=== PATIENT | male | born 1945 | race Caucasian/White ===

== ENCOUNTER 2018-04-22 22:10 | Inpatient (IN) | payer MEDICARE, OTHER ==
[2018-04-22] MEDS ORDERED: Norepinephrine 8 MG/250 ML BAG IVPB PRN (22:29)
[2018-04-22] MEDS ORDERED: Propofol 1,000 MG/100 ML VIAL IV PRN (22:31)
[2018-04-22] MEDS ORDERED: fentaNYL Citrate/PF 2,000 MCG in Sodium Chloride 0.9% 60 ML IV SCH (22:31)
[2018-04-22] MEDS ORDERED: Propofol BOLUS 1,000 MG/100 ML VIAL IV PRN (22:31)
[2018-04-22] MEDS ORDERED: Fentanyl BOLUS 250 ML IVPB PRN (22:31)
[2018-04-22] MEDS ORDERED: Lorazepam 2 MG/ML VIAL SLOW IVP PRN (22:31)
[2018-04-22] MEDS ORDERED: DISCONTINUE PREVIOUS NARCOTIC PAIN MEDICATIONS AND BENZODIAZEPINES FS SCH (22:31)
[2018-04-22] MEDS ORDERED: Morphine 4 MG/ML VIAL SLOW IVP PRN (22:31)
[2018-04-22 22:52] LABS: CO2 Tension 36.2 mmHg (35.0-45.0)
[2018-04-22 22:53] LABS: Actual Bicarbonate (HCO3a) 22.1 mEq/L (22-28); Base Excess (BEa) -2.2 mEq/L (-2.0 to +3.0); Calcium, Ionized 1.3 mmol/L (1.12-1.30); Hematocrit-ABG 29.6 % (42.0-52.0); Hemoglobin (Hb) 10.5 g/dL (14.0-18.0); O2 Tension (PaO2) 86.1 mmHg (> 70.0)
[2018-04-22 22:54] LABS: Puncture Site LRA
[2018-04-23 00:02] LABS: #Eosinphils 0.3 thou/uL (0.0-0.7); #Lymphocytes 1.9 thou/uL (1.20-3.40); #Neutrophils 9.4 thou/uL (1.40-6.50); %Basophils 0.1 % (0.0-1.0); %Eosinophils 2.6 % (0.0-10.0); %Monocytes 7.9 % (0.0-10.0); %Neutrophils 74.4 % (42.0-75.0); Hemoglobin 11.2 g/dL (14.0-18.0); Mean Corpuscular HGB CONC 32.2 g/dL (32.0-36.0); Mean Corpuscular Hemoglobin 29.9 pg (27.0-31.0); Mean Corpuscular Volume 92.7 fl (80.0-94.0); Mean Platelet Volume 8.4 fL (7.4-10.4); Platelet Count 274 thou/uL (130-400); RBC Distribution Width 13.4 % (11.5-14.5); Red Blood Cell (RBC) Count 3.74 mill/uL (4.70-6.10); White Blood Cell (WBC) Count 12.7 thou/uL (4.8-10.8)
[2018-04-23 00:21] LABS: ALT (SGPT) 66 U/L (8-55); AST (SGOT) 42 U/L (5-34); Alkaline Phosphatase 137 U/L (40-150); Anion Gap 13 mmol/L (10-20); BUN (Urea Nitrogen) 49 mg/dL (8.4-25.7); Bilirubin, Total 1.2 mg/dL (0.2-1.2); Calc. Creatinine Clearance 0 mL/min (70-130); Calcium 9.1 mg/dL (7.8-10.44); Carbon Dioxide 23 mmol/L (23-31); Chloride 117 mmol/L (98-107); Estimated GFR-MDRD 45; Globulin 3.1 g/dL (2.4-3.5); Glucose 152 mg/dL (83-110); Potassium 5.1 mmol/L (3.5-5.1); Protein, Total 6.1 g/dL (5.8-8.1); Sodium 148 mmol/L (136-145)
--- NOTE | 2018-04-23 00:59 | HP ---
ROBOTICS TECHNOLOGIST: Sin Resendiz MD GROUND WOOD SUPERVISOR: Kervin Escalera MD CHIEF COMPLAINT: Unable to obtain from the patient, but it appears that the patient had a cardiac ar rest event. HISTORY OF PRESENT ILLNESS: This is a 72-year-old male with minimal known past medical history other than glaucoma who is currently intubated and sedated without any family available at bedside to prov jose any component of history. It appears that the patient's records thus far have also been left at the airport and are not here with him today, so unfortunately his present illness is very limited and is based on what can be deduced from his current state and what has been verbally translated and sig n out to multiple providers. It appears that the patient was initially on a cruise when he was "found down." He underwent CPR for 15 minutes approximately and underwent several cardiac shocks with intubation in the field as well a nd return of spontaneous circulation. The patient certainly also has noted contusion on his head noah t is consistent with perhaps a fall. The patient was on the boat for it sounds like approximately 1 day afterwards and then was subsequent ly dropped off at a hospital in [place] where he was found to have sustained a STEMI. The patient had a stent placed during a heart catheterization and it is not clear what type of stent was placed exac tly where at this point in time. There is also concern that he initially had a component of cardioge tam shock and while he is currently not on dobutamine, there is a report that he was at one point pot entially on dobutamine previously. It is unclear what other complications may have ensued as well. There are reports that the patient had pneumonia possibly. Regardless, the patient currently is pres enting with a chest tube in place that is draining serosanguineous fluid as well. It appears throughout this acute illness, the patient has been intubated and maintained on ventilator y support. The patient also had a central line, triple lumen, placed at some point prior to the pres entation here today as well. Other lines and tubes include a Castle catheter that is coming with the patient as well. REVIEW OF SYSTEMS: Otherwise, unable to obtain. PAST MEDICAL HISTORY: Unable to obtain. HOME MEDICATIONS: Unable to obtain, although it was very sure that his who is on route will be coming in with his home medications. SOCIAL HISTORY: Unable to obtain. FAMILY HISTORY: Unable to obtain. PHYSICAL EXAMINATION: GENERAL: The patient is intubated, sedated. HEENT: Normocephalic. Significant bruising over his right eye. ET tube is in place. Slightly dry mucous membranes. CARDIOVASCULAR: S1, S2. Pulses 2+ bilateral upper extremities. No bilateral pitting pedal edema. RESPIRATORY: No wheezes, no rales, no rhonchi. The patient has coarse ventilatory sounds bilaterall y. This is a limited anterior examination. Chest tube in place, right side, draining serosanguineou s fluid. Site of insertion appears to be clean, dry, and intact. ABDOMEN: Large, protuberant, decreased bowel sounds were present, soft. MUSCULOSKELETAL: Small abrasions noted throughout his extremities that appeared to be in various pro cesses of healing. LABORATORY DATA AND IMAGING: Currently, all that is available is in the ABG that was obtained upon a rrival to the ICU, pH of 7.4, pCO2 of 36.2, pO2 of 86.1, bicarbonate 22.1. ASSESSMENT AND PLAN: 1. Status post ST-elevation myocardial infarction with a question of cardiogenic shock component. O btain an EKG now, echocardiogram as well. The patient has seen Dr. Resendiz on an outpatient basis. We will consult Cardiology as well. Closely monitor hemodynamics. Obtain prior records to determin e what type of stent was placed and what type of anticoagulation. The patient may need to be on rout e depending on the stent. Obtain a basic comprehensive metabolic panel and a CBC to determine the sa fety. Obtain those labs values. 2. Hypotension, question shock. Patient has been presented on Levophed. Unclear if this is necessa rily cardiogenic and residual, requiring Levophed or if this is secondary to sedation and requiring L evophed. We will maintain check lactic acid, check cultures from UA, check blood cultures, obtain a chest x-ray as well. Titrate as tolerated downward. 3. Acute hypoxic failure, currently on ventilatory support. The ABG above appreciate Pulmonary Crit ical Care consultation. This is likely secondary to cardiac issues as opposed to primary respiratory failure, question of pneumonia was brought up, we will obtain a chest x-ray, CBC. If any signs or s ymptoms consistent with infections, low threshold for initiating broad-spectrum antibiotics to encomp ass coverage for methicillin-resistant Staphylococcus aureus. 4. Cardiac arrest, status post CPR x15 minutes with shocks. Unclear if the patient underwent any hy pothermia protocol, but the patient has not had a second cardiac arrest. This was likely secondary t o his sustained ST-elevation myocardial infarction. 5. Glaucoma. Okay for the patient to continue his home eyedrops. 6. Diet: N.p.o. We will consult dietitian for possibility of tube feed initiation if he has contin ued ventilator support needs, DVT prophylaxis, sequential, gastrointestinal prophylaxis, famotidine. Activity: Bed rest while the patient is currently intubated. Admit the patient to intensive care unit. FULL CODE. Greater than 30 minutes critical care time spe nt at the bedside. The patient will need to follow up with outpatient records which should be available first thing in t he morning as well as obtaining contact with the patient's family, specifically his who has been with him during this trip where his acute medical issues started.
[2018-04-23 01:42] LABS: Bilirubin Negative (Negative); Blood, Urine Moderate (Negative); Clarity CLOUDY (Clear); Glucose, Urine (Dipstick) Negative (Negative); Leukocyte Trace (Negative); Nitrite Negative (Negative); Protein, Urine (Dipstick) Negative (Neg-Trace); Specific Gravity, Urine 1.021 (1.002-1.036)
[2018-04-23 01:46] LABS: Bacteria/HPF None Seen HPF (None Seen); Hyaline Casts/LPF 0-3 HYALINE CAST LPF (0-3 Hyaline); Pathc Cast-AUWi Flag 0.58 (0-2.49); Squamous Epithelial None Seen HPF (0-3); WBC/HPF 0-3 HPF (0-3)
[2018-04-23] MEDS ORDERED: Acetaminophen 325 MG/10.15 ML UDCUP PO PRN (03:08)
[2018-04-23] MEDS ORDERED: Ibuprofen 100 MG/5 ML UDCUP PO PRN (03:08)
[2018-04-23 06:18] LABS: #Eosinphils 0.4 thou/uL (0.0-0.7); #Lymphocytes 2.1 thou/uL (1.20-3.40); %Basophils 0.2 % (0.0-1.0); %Eosinophils 2.9 % (0.0-10.0); %Lymphocytes 15.3 % (21.0-51.0); %Monocytes 7.5 % (0.0-10.0); %Neutrophils 74.1 % (42.0-75.0); Mean Corpuscular HGB CONC 32.6 g/dL (32.0-36.0); Mean Corpuscular Hemoglobin 30.1 pg (27.0-31.0); Mean Corpuscular Volume 92.2 fl (80.0-94.0); Mean Platelet Volume 8.4 fL (7.4-10.4); Platelet Count 270 thou/uL (130-400); RBC Distribution Width 13.3 % (11.5-14.5); Red Blood Cell (RBC) Count 3.66 mill/uL (4.70-6.10); White Blood Cell (WBC) Count 13.5 thou/uL (4.8-10.8)
[2018-04-23] MEDS: Amiodarone HCl 450 MG, Admixture Fee 1 EACH in Dextrose 5% in Water 250 ML IVPB SCH ×2 (06:30→13:57)
[2018-04-23 06:35] LABS: ALT (SGPT) 81 U/L (8-55); AST (SGOT) 69 U/L (5-34); Alkaline Phosphatase 166 U/L (40-150); Anion Gap 14 mmol/L (10-20); BUN (Urea Nitrogen) 47 mg/dL (8.4-25.7); Bilirubin, Total 1.2 mg/dL (0.2-1.2); Calc. Creatinine Clearance 76 mL/min (70-130); Calcium 9.1 mg/dL (7.8-10.44); Carbon Dioxide 23 mmol/L (23-31); Chloride 118 mmol/L (98-107); Estimated GFR-MDRD 51; Globulin 3.1 g/dL (2.4-3.5); Glucose 155 mg/dL (83-110); Potassium 4.7 mmol/L (3.5-5.1); Protein, Total 6.1 g/dL (5.8-8.1); Sodium 150 mmol/L (136-145)
[2018-04-23] MEDS ORDERED: Digoxin 0.5 MG/2 ML AMP SLOW IVP SCH (08:15)
--- NOTE | 2018-04-23 08:23 | RAD ---
CHEST 1 VIEW: Date: 04/23/18 HISTORY: Intubated. Dyspnea. COMPARISON: 08/15/13. FINDINGS: Cardiac silhouette is magnified and upper limits of normal in size. Pulmonary vasculature is unremark able. Mediastinum is midline. Tip of the endotracheal catheter overlies the thoracic inlet. Nasogastr ic tube descends to the stomach. Tip of a right internal jugular central venous catheter overlies the superior vena cava. Right thoracostomy tube is in place. No significant residual right pneumothorax. Right chest wall gas is apparent. Old left rib fractures are evident. cone baker machine leads overlie the chest. IMPRESSION: Endotracheal catheter, right internal jugular central venous catheter, and right thoracostomy tube ar e in good radiographic position. No significant residual pneumothorax. POS: [facility]
[2018-04-23 08:39] LABS: Digoxin Less than 0.15 ng/mL (0.8-2.0)
[2018-04-23] MEDS: LATANOPROST 0.005% L EYE SCH (08:49)
[2018-04-23] MEDS: OPTHALMIC L EYE SCH (08:49)
[2018-04-23] MEDS ORDERED: Famotidine/PF 20 mg/2ml Vial SLOW IVP SCH (09:00)
[2018-04-23] MEDS: Pantoprazole 40 MG VIAL IVP SCH (09:06)
[2018-04-23] MEDS ORDERED: Lacri-Lube Opth Oint 3.5 GM TUBE EA EYE PRN (09:10)
[2018-04-23] MEDS: Dextrose 5% in Water 1,000 ML IV SCH ×2 (09:32→18:42)
[2018-04-23] MEDS: Piperacillin/Tazobactam 3.375 GM in Sodium Chloride 0.9% 100 ML IVPB SCH ×3 (09:35→22:07)
--- NOTE | 2018-04-23 09:42 | CON ---
DATE OF CONSULTATION: 04/23/2018 SERVICE: Pulmonary Medicine. REASON FOR CONSULTATION: Intubated patient. HISTORY OF PRESENT ILLNESS: The patient is a 72-year-old white male. Apparently, he was in his [facility], visiting [place]. He had acute onset of some discomfort. He was [facility] and was discovered to have an ST elevation SD. He ended up undergoing percutaneou s coronary intervention to the left anterior descending artery. It is not clear what stent that was. All of his records got left on the plane. He currently denies any fevers, chills, nausea, vomiting , shortness of breath or chest discomfort. We really do not know what happened to him. That being s aid, he has a prolonged expiratory phase on the ventilator. He also has a right-sided chest tube. Cheryle franco was being ventilated with generous tidal volumes. When he arrived, he was heavily sedated on Prece dex, Versed, and fentanyl. All of those things have been interrupted and he is waking up cool, calm and collected. He is able to move both upper and lower extremities. He is breathing comfortable on minimal support. PAST MEDICAL HISTORY: 1. Coronary artery disease. 2. Type 2 diabetes mellitus. 2. Dyslipidemia. 3. Hypertension. PAST SURGICAL HISTORY: None that we are aware of other than percutaneous coronary intervention to viv franco LAD. SOCIAL HISTORY: He previously smoked a pack a day. It is not clear how much he currently smokes. Cheryle franco drinks socially. He previously denied any illicit drugs in 2012. FAMILY HISTORY: Noncontributory. ALLERGIES: No known drug allergies. MEDICATIONS: List of his inpatient medications were reviewed. No specific updates were made. Home medication list is currently pending. REVIEW OF SYSTEMS: This cannot be obtained as the patient is currently intubated and under the influ ence of some sedation. PHYSICAL EXAMINATION: VITAL SIGNS: T-max 101.0, pulse 140, respirations 17, saturation 100% on 23% FiO2 and a PEEP of 5. GENERAL: The patient is intubated and sedated. HEENT: Normocephalic. There is ecchymoses about the right eye. Sclerae are white, conjunctivae pin k. Oral and nasal mucosa is moist without lesions. LUNGS: Decent air entry. Minimal crackles are dependent. There is a prolonged expiratory phase, bu t no wheezing is appreciated. HEART: Tachycardic. Irregular. ABDOMEN: Soft, nontender, nondistended. Bowel sounds are positive. MUSCULOSKELETAL: No cyanosis or clubbing. There is no pitting in the bilateral lower extremities. NEUROLOGIC: Grossly nonfocal. LABORATORY DATA: WBC 13.5, hemoglobin 11.0, platelets 270,000. Creatinine 1.36, BUN 47. Basic meta bolic profile is otherwise unremarkable other than a sodium of 150, lactate 0.9. AST and ALT are gen tly up trending with an alkaline phosphatase of 166. Urinalysis is unremarkable. Digoxin level is l ess than 0.15. IMAGING: Chest x-ray demonstrates right IJ central venous catheter is in good position. There is a right thoracostomy tube in decent position. No evidence of a pneumothorax is present. Endotracheal tube terminates roughly 5 cm above the level of the kandace. I do not see any obvious infiltrate. ASSESSMENT: 1. Acute hypoxic respiratory failure. 2. ST elevation myocardial infarction. 3. Atrial fibrillation with rapid ventricular response. 4. Chronic obstructive pulmonary disease, suspected with possible minimal exacerbation. 5. Sepsis with unknown source. PLAN: If he fevers again, we will clancy culture him. I will empirically initiate vancomycin and Zosyn . We are going to initiate some nebulized medications. The sodium was elevated, so we will introduc e some free water. He had an acute kidney injury, but apparently this is resolving slowly. Pulmonar y and Critical Care will continue to follow along very closely. If the heart rate gets under better control, we will consider spontaneous breathing trial and possible extubation. Critical care time: 50 minutes.
[2018-04-23] MEDS ORDERED: Vancomycin HCl 1.75 GM in Sodium Chloride 0.9% 500 ML IVPB SCH (10:00)
--- NOTE | 2018-04-23 10:57 | PDOC.PN ---
- Subjective Encounter Start Date: 04/23/18 Encounter Start Time: 10:54 Subjective: extubated , oriented to person and place - Objective Resuscitation Status: Resuscitation Status FULL:Full Resuscitation MAR Reviewed: Yes Vital Signs & Weight: Vital Signs (12 hours) Temp Pulse Resp Pulse Ox 04/23/18 10:00 18 04/23/18 09:20 145 H 04/23/18 09:10 94 L 04/23/18 08:48 140 H 04/23/18 08:00 18 04/23/18 06:44 141 H 04/23/18 06:00 99.2 F 16 04/23/18 04:00 16 04/23/18 02:00 16 04/23/18 01:00 100.5 F H 04/23/18 00:00 16 Weight Weight 244 lb 11.41 oz Most Recent Monitor Data Heart Rate from ECG 141 NIBP 113/86 NIBP BP-Mean 92 Respiration from ECG 23 SpO2 97 I&O: 04/22/18 04/23/18 04/24/18 06:59 06:59 06:59 Intake Total 40 229.9 Output Total 2110 300 Balance -2070 -70.1 Result Diagrams: 04/23/18 05:00 04/23/18 05:00 Additional Labs: Accuchecks 04/23/18 05:06 POC Glucose 142 H Phys Exam - Physical Examination Neck: no JVD decreased BS, rhonchi Cardiovascular: no significant murmur, irregular Gastrointestinal: soft, positive bowel sounds Musculoskeletal: edema present Dx/Plan (1) History of successful cardiopulmonary resuscitation Code(s): Z92.89 - PERSONAL HISTORY OF OTHER MEDICAL TREATMENT Status: Acute (2) Respiratory failure requiring intubation Code(s): J96.90 - RESPIRATORY FAILURE, UNSP, UNSP W HYPOXIA OR HYPERCAPNIA Status: Acute (3) CAD (coronary artery disease) Code(s): I25.10 - ATHSCL HEART DISEASE OF [place] CORONARY ARTERY W/O ANG PCTRS Status: Acute Qualifiers: Coronary Disease-Associated Artery/Lesion type: [place] artery [place] vs. transplanted heart: [place] heart Associated angina: without angina Qualified Code(s): I25.10 - Atherosclerotic heart disease of [place] coronary artery without angina pectoris (4) Atrial fibrillation with controlled ventricular response Code(s): I48.91 - UNSPECIFIED ATRIAL FIBRILLATION Status: Acute (5) STEMI (ST elevation myocardial infarction) Status: Acute Qualifiers: Involved coronary artery: unspecified coronary artery Qualified Code(s): I21.3 - ST elevation (STEMI) myocardial infarction of unspecified site (6) HTN (hypertension) Code(s): I10 - ESSENTIAL (PRIMARY) HYPERTENSION Status: Chronic Qualifiers: Hypertension type: essential hypertension Qualified Code(s): I10 - Essential (primary) hypertension - Plan transfer from [place] [facility] CPR, intubatiom, card cath, PCI by Hx. no records -: extubated, alert -: on iv amiodarone, digoxin -: on iv antibx -: awaiting records from [place] * .
--- NOTE | 2018-04-23 11:15 | PQF ---
DATE: 04-23-18 ATTN: DR. LUCAS ARIAS Please exercise your independent, professional judgment in responding to the clarification form. Clinical indicators are provided on the bottom of this form for your review Please check appropriate box(s) to clarify if the following diagnosis has been ruled in or ruled out: SEPSIS WITH UNKNOWN SOURCE [ ] Ruled in diagnosis [ ] Continue to treat [ ] Resolved [ ] Ruled out diagnosis [ ] Other diagnosis [ x ] Unable to determine In addition, please specify: Present on Admission (POA): [ ] Yes [ ] No [ ] Unable to determine For continuity of documentation, please document condition throughout progress notes and discharge summary. Thank You. CLINICAL INDICATORS - SIGNS / SYMPTOMS / LABS H&P: THERE ARE REPORTS THAT THE PATIENT HAD PNEUMONIA POSSIBLY CONSULT NOTE DR. GIBSON 04-23-18: SEPSIS WITH UNKNOWN SOURCE WBC: 04-22-18: 12.7 04-23-18: 13.5 TEMP: 04-22-18: 101.0 101.0 101.0 -06-03: 100.5 PULSE: 04-23-18: 141, 135, 140, 145, 148, 159 RISK FACTORS: H&P: THERE ARE REPORTS THAT THE PATIENT HAD PNEUMONIA POSSIBLY , CARDIAC ARREST, WAS FOUND DOWN ON A CRUISE, UNDERWENT SEVERAL CARDIAC SHOCKS WITH INTUBATION IN THE FIELD TREATMENTS: (MAR) ZOSYN , IVF, VANCOMYCIN (This form is maintained as a part of the permanent medical record) 2014 [employer] All Rights Reserved [email or web address] [email or web address] Office: [phone] [facility] CENTERPa
[2018-04-23] MEDS ORDERED: Naloxone HCl 0.4 mg/ml Vial ONE (12:00)
[2018-04-23] MEDS ORDERED: MAGNESIUM SULFATE 4.06 MEQ/ML ONE (12:00)
[2018-04-23] MEDS ORDERED: Aspirin 81 mg Enteric Coated Tablet PO SCH (18:45)
[2018-04-23] MEDS ORDERED: Clopidogrel Bisulfate 300 MG TAB PO SCH (18:45)
[2018-04-23] MEDS ORDERED: Aspirin 325 mg Enteric Coated Tablet PO SCH (18:45)
[2018-04-23] MEDS ORDERED: Vancomycin HCl 1.5 GM in Sodium Chloride 0.9% 250 ML 300 ML IVPB SCH (21:00)
[2018-04-23] MEDS: Vancomycin HCl 1 GM in Premix Bag 1 BAG IVPB SCH (22:07)
[2018-04-24] MEDS: Dextrose 5% in Water 1,000 ML IV SCH ×3 (00:27→13:15)
[2018-04-24] MEDS: Piperacillin/Tazobactam 3.375 GM in Sodium Chloride 0.9% 100 ML IVPB SCH ×4 (03:58→20:46)
--- NOTE | 2018-04-24 04:56 | CON ---
DATE OF CONSULTATION: 04/23/2018 HISTORY: Zeke Dawkins is a 72-year-old, white male, who had a cardiac arrest while on a cruise ship. I saw him in 08/2002. He had undergone adenosine Cardiolite testing at the ID and was found to have a fixed inferior wall defect , consistent with previous infarction. The ID wanted to send him to [place] to undergo cardiac catheterization; however, he wishes evaluation here. He underwent cardiac catheterization, which revealed normal left ventricular function with ejection fraction of 50%-55%. There was a 50% lesion in a branch of the first diagonal, 20% ramus, aneurysmal proximal circumflex, but otherwise normal. There was a 30% proximal RCA and a 50% mid RCA. He underwent flow wire evaluation of his mid RCA lesion and the FFR was 0.87. He was seen several times in the office after that for management of his hypercholesterolemia. He, however, continued to smoke 1 pack per day. Last time I saw him was on 05/26/2006. He has not returned for followup since that time. As stated above, he was on a cruise ship, and he was found down. CPR was started for approximately 15 minutes. He underwent several cardiac shocks, intubation, and had return of spontaneous circulation, and he was dropped off at a hospital in [place] and apparently underwent cardiac catheterization, and a stent was placed. It is unclear what vessel or the type of stent at this time. He apparently remained intubated, also had a chest tube placed. He ultimately was flown here and arrived last night. He was initially seen this morning. He was in atrial fibrillation with rapid ventricular response and amiodarone had been started IV. I gave him digoxin 0.5 mg IV. He ultimately converted to sinus rhythm and is now extubated. PAST MEDICAL HISTORY: Hypercholesterolemia, hypertension, borderline diabetes in the past. MEDICATIONS: Unknown. ALLERGIES: Unknown. OPERATIONS: Unknown. SOCIAL HISTORY: He smoked 1 pack per day in the past. I am not certain if he continues to smoke. 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 REVIEW OF SYSTEMS: Unobtainable. PHYSICAL EXAMINATION: VITAL SIGNS: Blood pressure 127/48, pulse of 86. HEENT: The patient has facial ecchymosis. LUNGS: Chest reveals rhonchi. CARDIOVASCULAR EXAMINATION: S1 and S2 normal, without any S3, S4, or murmurs. ABDOMEN: Normal bowel sounds, without tenderness or organomegaly. EXTREMITIES: Revealed 1+ pretibial edema. NEUROLOGICAL: The patient is intubated initially when he was seen this morning , but moved all extremities. LABORATORY DATA: EKG on admission reveals normal sinus rhythm with incomplete right bundle branch block, anterior T-wave changes consistent with ischemia, and he is in atrial fibrillation with a rate of 139 per minute, he has a left bundle branch block pattern. Hemoglobin 11.0, hematocrit 33.7, white count 13, 500, platelets 270,000. Sodium 150, potassium 4.7, chloride 118, carbon dioxide 23, BUN 47, creatinine 1.36. AST 69 and ALT 81. Digoxin less than 0.15. IMPRESSION: 1. [id number] cardiac arrest. 2. Presumed ST-elevation myocardial infarction with placement of stent in an unknown vessel in [place]. 3. Atrial fibrillation with fast ventricular response, ultimately converting with intravenous amiodarone and digoxin. 4. Hypertension. 5. Hypercholesterolemia. 6. Borderline diabetes. 7. Smoker. However, I am not certain if he continues to smoke at this time. PLAN: The patient is currently on antibiotics. He needs to be on aspirin and Plavix, although I am not certain what antiplatelet agents he was given initially. Old records will be available sometime in the future, but are not here now. ADDENDUM: Records arrived. All in [place]. Reviewed-04/16/18-99% RCA and 30- 40% Circumflex. Promus 3.5 x 28mm JANNY placed in the RCA. MTDD
[2018-04-24 06:03] LABS: #Eosinphils 0.5 thou/uL (0.0-0.7); #Lymphocytes 1.5 thou/uL (1.20-3.40); #Monocytes 0.7 thou/uL (0.11-0.59); #Neutrophils 7.6 thou/uL (1.40-6.50); %Basophils 0.2 % (0.0-1.0); %Eosinophils 4.6 % (0.0-10.0); %Lymphocytes 14.6 % (21.0-51.0); %Monocytes 7.2 % (0.0-10.0); %Neutrophils 73.4 % (42.0-75.0); Hemoglobin 9.9 g/dL (14.0-18.0); Mean Corpuscular HGB CONC 32.7 g/dL (32.0-36.0); Mean Corpuscular Hemoglobin 30.3 pg (27.0-31.0); Mean Corpuscular Volume 92.7 fl (80.0-94.0); Mean Platelet Volume 8.2 fL (7.4-10.4); Platelet Count 214 thou/uL (130-400); RBC Distribution Width 13.1 % (11.5-14.5); Red Blood Cell (RBC) Count 3.26 mill/uL (4.70-6.10); White Blood Cell (WBC) Count 10.4 thou/uL (4.8-10.8)
[2018-04-24 06:10] LABS: ALT (SGPT) 56 U/L (8-55); AST (SGOT) 34 U/L (5-34); Albumin 2.8 g/dL (3.4-4.8); Alkaline Phosphatase 124 U/L (40-150); Anion Gap 11 mmol/L (10-20); BUN (Urea Nitrogen) 38 mg/dL (8.4-25.7); Calc. Creatinine Clearance 83 mL/min (70-130); Calcium 8.5 mg/dL (7.8-10.44); Carbon Dioxide 24 mmol/L (23-31); Chloride 115 mmol/L (98-107); Estimated GFR-MDRD 57; Globulin 2.9 g/dL (2.4-3.5); Glucose 157 mg/dL (83-110); Potassium 3.9 mmol/L (3.5-5.1); Protein, Total 5.7 g/dL (5.8-8.1); Sodium 146 mmol/L (136-145)
[2018-04-24] MEDS: Amiodarone HCl 450 MG, Admixture Fee 1 EACH in Dextrose 5% in Water 250 ML IVPB SCH (06:10)
[2018-04-24 06:19] VITALS: BMI 31.6
--- NOTE | 2018-04-24 08:49 | PDOC.PN ---
- Subjective Encounter Start Date: 04/24/18 Encounter Start Time: 08:47 Subjective: alert, amnestic for events of past week - Objective Resuscitation Status: Resuscitation Status FULL:Full Resuscitation MAR Reviewed: Yes Vital Signs & Weight: Vital Signs (12 hours) Temp Pulse Resp Pulse Ox 04/24/18 07:00 98.9 F 04/24/18 06:50 99 04/24/18 06:49 70 21 H 99 04/24/18 04:00 98.8 F 04/24/18 00:00 98.3 F 04/23/18 23:53 68 24 H 100 Weight Weight 238 lb 12.17 oz Most Recent Monitor Data Heart Rate from ECG 65 NIBP 126/60 NIBP BP-Mean 70 Respiration from ECG 24 SpO2 100 I&O: 04/23/18 04/24/18 04/25/18 06:59 06:59 06:59 Intake Total 40 3197.9 15 Output Total 2110 2130 70 Balance -2070 1067.9 -55 Result Diagrams: 04/24/18 05:25 04/24/18 05:25 Phys Exam - Physical Examination Neck: no JVD Respiratory: clear to auscultation bilateral Cardiovascular: RRR, no significant murmur Gastrointestinal: soft, positive bowel sounds Musculoskeletal: edema present Dx/Plan (1) History of successful cardiopulmonary resuscitation Code(s): Z92.89 - PERSONAL HISTORY OF OTHER MEDICAL TREATMENT Status: Acute (2) Respiratory failure requiring intubation Code(s): J96.90 - RESPIRATORY FAILURE, UNSP, UNSP W HYPOXIA OR HYPERCAPNIA Status: Acute (3) CAD (coronary artery disease) Code(s): I25.10 - ATHSCL HEART DISEASE OF [place] CORONARY ARTERY W/O ANG PCTRS Status: Acute Qualifiers: Coronary Disease-Associated Artery/Lesion type: [place] artery [place] vs. transplanted heart: [place] heart Associated angina: without angina Qualified Code(s): I25.10 - Atherosclerotic heart disease of [place] coronary artery without angina pectoris (4) Atrial fibrillation with controlled ventricular response Code(s): I48.91 - UNSPECIFIED ATRIAL FIBRILLATION Status: Acute (5) STEMI (ST elevation myocardial infarction) Status: Acute Qualifiers: Involved coronary artery: unspecified coronary artery Qualified Code(s): I21.3 - ST elevation (STEMI) myocardial infarction of unspecified site (6) HTN (hypertension) Code(s): I10 - ESSENTIAL (PRIMARY) HYPERTENSION Status: Chronic Qualifiers: Hypertension type: essential hypertension Qualified Code(s): I10 - Essential (primary) hypertension (7) Cardiomyopathy Code(s): I42.9 - CARDIOMYOPATHY, UNSPECIFIED Status: Acute - Plan still on iv amiodarone- now in RSR -: on ASA, plavix -: speech eval, up in chair, PT -: will eventually need b-johanna/ LUDWIN * .
[2018-04-24] MEDS: Vancomycin HCl 1 GM in Premix Bag 1 BAG IVPB SCH ×2 (09:11→20:47)
[2018-04-24] MEDS: Enoxaparin Sodium 40 MG/0.4 ML SYRINGE SC SCH (09:14)
[2018-04-24] MEDS: Amiodarone 200 MG TAB PO SCH ×3 (09:15→20:46)
[2018-04-24] MEDS: Aspirin 325 mg Enteric Coated Tablet PO SCH (09:16)
[2018-04-24] MEDS: Clopidogrel Bisulfate 75 MG TAB PO SCH (09:16)
[2018-04-24] MEDS: Pantoprazole 40 MG VIAL IVP SCH (09:17)
[2018-04-24] MEDS: OPTHALMIC L EYE SCH (09:20)
[2018-04-24] MEDS: LATANOPROST 0.005% L EYE SCH (09:20)
[2018-04-24] MEDS: Carvedilol 3.125 MG TAB PO SCH ×2 (09:42→18:35)
[2018-04-24] MEDS ORDERED: Potassium Chloride 20 MEQ TAB PO SCH (10:15)
--- NOTE | 2018-04-24 10:46 | PRG ---
DATE OF SERVICE: 04/24/2018 SERVICE: Pulmonary Medicine. INTERVAL HISTORY: The patient is doing okay from a cardiovascular and respiratory standpoint. He is breathing comfortably. He denies any current chest pain, nausea, vomiting, fevers or chills. Chest tube came out yesterday with no event. Otherwise, there has been no interval change to his conditio n. PHYSICAL EXAMINATION: VITAL SIGNS: Afebrile, pulse 70, blood pressure 126/60, respirations 24, saturation 100% on 2 liters nasal cannula. GENERAL: The patient is awake, alert, no apparent distress. LUNGS: Decent air entry. There is no prolonged expiratory phase. Dependent crackles are minimal. No wheezing or rhonchi are present. HEART: Normal rate, regular. ABDOMEN: Soft, nontender, nondistended. Bowel sounds are positive. MUSCULOSKELETAL: No cyanosis or clubbing. There is trace pitting in the bilateral lower extremities . NEUROLOGIC: Grossly nonfocal. LABORATORY DATA: WBC 10.4 and down trending, hemoglobin 9.9, platelets 214,000. Basic metabolic pro file is essentially unremarkable. Sodium is down trending, chloride is down trending. Creatinine is now in the normal range of 1.24. BUN is improving. Liver function studies are also unremarkable/im proving. Potassium is 3.9. TSH falls within the normal limits. Urinalysis is unremarkable, digoxin less than 0.15. IMAGING: Echocardiogram demonstrates 30%-35% ejection fraction with normal right ventricular functio n. No significant valvular abnormality was identified. Atrial fibrillation was present in the backg round. ASSESSMENT: 1. Acute hypoxic respiratory failure. 2. ST elevation myocardial infarction. 3. Acute systolic heart failure, close to euvolemia. 4. Atrial fibrillation with rapid ventricular response, currently returned in normal sinus rhythm. 5. Chronic obstructive pulmonary disease, suspected with minimal exacerbation. 6. Sepsis with unknown source. DISCUSSION AND PLAN: We will continue our antibiotics, nebulized medications and steroids. We will work on mobilizing the patient through the day and involve physical therapy. Castle catheter to be re moved. I will drop his free water. Speech Pathology consultation is pending and hopefully he will b e able to tolerate some p.o. I will give him 1 dose of potassium today. Laboratory holiday will be provided tomorrow morning.
[2018-04-24] MEDS: Atorvastatin Calcium 40 MG TAB PO SCH (20:46)
[2018-04-25] MEDS: Piperacillin/Tazobactam 3.375 GM in Sodium Chloride 0.9% 100 ML IVPB SCH ×4 (03:06→20:33)
[2018-04-25] MEDS: Dextrose 5% in Water 1,000 ML IV SCH ×2 (03:08→20:37)
[2018-04-25 05:44] LABS: #Eosinphils 0.8 thou/uL (0.0-0.7); #Lymphocytes 1.9 thou/uL (1.20-3.40); #Neutrophils 11.2 thou/uL (1.40-6.50); %Basophils 0.1 % (0.0-1.0); %Eosinophils 5.1 % (0.0-10.0); %Lymphocytes 12.5 % (21.0-51.0); %Monocytes 6.8 % (0.0-10.0); %Neutrophils 75.4 % (42.0-75.0); Hemoglobin 10.6 g/dL (14.0-18.0); Mean Corpuscular HGB CONC 32.6 g/dL (32.0-36.0); Mean Corpuscular Hemoglobin 29.8 pg (27.0-31.0); Mean Corpuscular Volume 91.3 fl (80.0-94.0); Platelet Count 264 thou/uL (130-400); Red Blood Cell (RBC) Count 3.56 mill/uL (4.70-6.10); White Blood Cell (WBC) Count 14.8 thou/uL (4.8-10.8)
[2018-04-25 06:18] LABS: ALT (SGPT) 48 U/L (8-55); AST (SGOT) 28 U/L (5-34); Albumin 2.8 g/dL (3.4-4.8); Alkaline Phosphatase 114 U/L (40-150); Anion Gap 13 mmol/L (10-20); BUN (Urea Nitrogen) 28 mg/dL (8.4-25.7); Bilirubin, Total 0.9 mg/dL (0.2-1.2); Calc. Creatinine Clearance 91 mL/min (70-130); Calcium 8.3 mg/dL (7.8-10.44); Carbon Dioxide 22 mmol/L (23-31); Cardiac Risk 3.4 (Less than 4.5); Chloride 111 mmol/L (98-107); Cholesterol 75 mg/dl (< 200 Desired); Estimated GFR-MDRD 66; Globulin 2.7 g/dL (2.4-3.5); Glucose 168 mg/dL (83-110); HDL Cholesterol 22 mg/dL (>60 Neg Risk); LDL Cholesterol, Calculated 29 mg/dL; Potassium 3.8 mmol/L (3.5-5.1); Protein, Total 5.5 g/dL (5.8-8.1); Sodium 142 mmol/L (136-145); Triglycerides 122 mg/dL (Less than 150)
[2018-04-25] MEDS: Enoxaparin Sodium 40 MG/0.4 ML SYRINGE SC SCH (08:14)
[2018-04-25] MEDS: Pantoprazole 40 MG VIAL IVP SCH (08:14)
[2018-04-25] MEDS: Amiodarone 200 MG TAB PO SCH ×3 (08:15→20:31)
[2018-04-25] MEDS: Aspirin 325 mg Enteric Coated Tablet PO SCH (08:15)
[2018-04-25] MEDS: Carvedilol 3.125 MG TAB PO SCH ×2 (08:15→17:04)
[2018-04-25] MEDS: Clopidogrel Bisulfate 75 MG TAB PO SCH (08:15)
[2018-04-25 08:20] LABS: Vancomycin, Trough 16.5 ug/mL
[2018-04-25] MEDS: LATANOPROST 0.005% L EYE SCH (09:20)
[2018-04-25] MEDS: OPTHALMIC L EYE SCH (09:20)
[2018-04-25] MEDS: Vancomycin HCl 1 GM in Premix Bag 1 BAG IVPB SCH ×2 (09:30→20:34)
--- NOTE | 2018-04-25 11:10 | PRG ---
DATE OF SERVICE: 04/25/2018 SUBJECTIVE: Mariza is a 72-year-old gentleman in the ICU, appears somewhat encephalopathic, but den ies any difficulty breathing. He went into atrial fibrillation. He is now on amiodarone drip. OBJECTIVE: VITAL SIGNS: His respiratory failure is resolved. His sats are 99% on 2 liters, pulse 77, blood pre ssure 114/59, respiratory rate 24. CHEST: With decreased breath sounds without any wheezing. CARDIAC: Atrial fibrillation. ABDOMEN: Soft. NEUROLOGIC: Neurologically, he is awake, responsive. EXTREMITIES: No edema. LABORATORY DATA: Creatinine 1.1. White count 14,000, H&H is 10 and 32, platelet count is normal. IMPRESSION: 1. Respiratory failure. 2. Atrial fibrillation. 3. Chronic obstructive pulmonary disease. PLAN: Continue O2, neb treatments, amiodarone. He is on broad-spectrum antibiotics. We will deescalate if cultures are negative.
--- NOTE | 2018-04-25 12:53 | PDOC.PN ---
- Subjective Encounter Start Date: 04/25/18 Encounter Start Time: 12:51 Subjective: no chest pain or sob - Objective Resuscitation Status: Resuscitation Status FULL:Full Resuscitation MAR Reviewed: Yes Vital Signs & Weight: Vital Signs (12 hours) Temp Pulse Resp Pulse Ox 04/25/18 12:00 98.1 F 04/25/18 08:00 98.2 F 78 18 100 04/25/18 07:18 98 04/25/18 07:15 108 H 22 H 98 04/25/18 04:00 98.1 F Weight Admit Weight 244 lb 11.41 oz Weight 237 lb 10.533 oz Most Recent Monitor Data Heart Rate from ECG 65 NIBP 160/64 NIBP BP-Mean 75 Respiration from ECG 30 SpO2 100 I&O: 04/24/18 04/25/18 04/26/18 06:59 06:59 06:59 Intake Total 3197.9 3524 660 Output Total 2130 920 580 Balance 1067.9 2604 80 Result Diagrams: 04/25/18 05:30 04/25/18 05:30 Phys Exam - Physical Examination Neck: no JVD Respiratory: clear to auscultation bilateral Cardiovascular: RRR, no significant murmur Gastrointestinal: soft, positive bowel sounds Musculoskeletal: edema present Dx/Plan (1) History of successful cardiopulmonary resuscitation Code(s): Z92.89 - PERSONAL HISTORY OF OTHER MEDICAL TREATMENT Status: Acute (2) Respiratory failure requiring intubation Code(s): J96.90 - RESPIRATORY FAILURE, UNSP, UNSP W HYPOXIA OR HYPERCAPNIA Status: Acute (3) CAD (coronary artery disease) Code(s): I25.10 - ATHSCL HEART DISEASE OF [place] CORONARY ARTERY W/O ANG PCTRS Status: Acute Qualifiers: Coronary Disease-Associated Artery/Lesion type: [place] artery [place] vs. transplanted heart: [place] heart Associated angina: without angina Qualified Code(s): I25.10 - Atherosclerotic heart disease of [place] coronary artery without angina pectoris (4) Atrial fibrillation with controlled ventricular response Code(s): I48.91 - UNSPECIFIED ATRIAL FIBRILLATION Status: Acute (5) STEMI (ST elevation myocardial infarction) Status: Acute Qualifiers: Involved coronary artery: unspecified coronary artery Qualified Code(s): I21.3 - ST elevation (STEMI) myocardial infarction of unspecified site (6) HTN (hypertension) Code(s): I10 - ESSENTIAL (PRIMARY) HYPERTENSION Status: Chronic Qualifiers: Hypertension type: essential hypertension Qualified Code(s): I10 - Essential (primary) hypertension (7) Cardiomyopathy Code(s): I42.9 - CARDIOMYOPATHY, UNSPECIFIED Status: Acute - Plan on iv amiodarone , stillin/out AF -: cont asa, plavix, coreg, statin * .
[2018-04-25] MEDS: Amiodarone HCl 450 MG, Admixture Fee 1 EACH in Dextrose 5% in Water 250 ML IVPB SCH ×2 (13:16)
[2018-04-25] MEDS: Atorvastatin Calcium 40 MG TAB PO SCH (20:31)
[2018-04-26] MEDS: Piperacillin/Tazobactam 3.375 GM in Sodium Chloride 0.9% 100 ML IVPB SCH ×4 (03:03→21:01)
[2018-04-26 04:32] LABS: #Eosinphils 0.7 thou/uL (0.0-0.7); #Lymphocytes 2.3 thou/uL (1.20-3.40); #Neutrophils 8.4 thou/uL (1.40-6.50); %Basophils 0.2 % (0.0-1.0); %Eosinophils 5.8 % (0.0-10.0); %Lymphocytes 18.5 % (21.0-51.0); %Neutrophils 67.4 % (42.0-75.0); Hemoglobin 9.9 g/dL (14.0-18.0); Mean Corpuscular HGB CONC 31.9 g/dL (32.0-36.0); Mean Corpuscular Volume 91.1 fl (80.0-94.0); Mean Platelet Volume 8.1 fL (7.4-10.4); Platelet Count 264 thou/uL (130-400); White Blood Cell (WBC) Count 12.4 thou/uL (4.8-10.8)
[2018-04-26 05:07] LABS: ALT (SGPT) 43 U/L (8-55); AST (SGOT) 25 U/L (5-34); Albumin 2.9 g/dL (3.4-4.8); Alkaline Phosphatase 113 U/L (40-150); Anion Gap 11 mmol/L (10-20); BUN (Urea Nitrogen) 24 mg/dL (8.4-25.7); Bilirubin, Total 0.7 mg/dL (0.2-1.2); Calc. Creatinine Clearance 90 mL/min (70-130); Calcium 8.5 mg/dL (7.8-10.44); Carbon Dioxide 24 mmol/L (23-31); Chloride 108 mmol/L (98-107); Estimated GFR-MDRD 65; Globulin 2.5 g/dL (2.4-3.5); Glucose 152 mg/dL (83-110); Potassium 3.7 mmol/L (3.5-5.1); Protein, Total 5.4 g/dL (5.8-8.1); Sodium 139 mmol/L (136-145)
[2018-04-26] MEDS: Carvedilol 3.125 MG TAB PO SCH ×2 (08:17→16:25)
[2018-04-26] MEDS: Aspirin 325 mg Enteric Coated Tablet PO SCH (08:17)
[2018-04-26] MEDS: Pantoprazole 40 MG VIAL IVP SCH (08:17)
[2018-04-26] MEDS: Clopidogrel Bisulfate 75 MG TAB PO SCH (08:17)
[2018-04-26] MEDS: Enoxaparin Sodium 40 MG/0.4 ML SYRINGE SC SCH (08:18)
[2018-04-26] MEDS: Amiodarone 200 MG TAB PO SCH ×3 (08:18→21:01)
[2018-04-26] MEDS: Vancomycin HCl 1 GM in Premix Bag 1 BAG IVPB SCH ×2 (08:32→21:02)
[2018-04-26] MEDS: LATANOPROST 0.005% L EYE SCH (08:34)
[2018-04-26] MEDS: OPTHALMIC L EYE SCH (08:34)
--- NOTE | 2018-04-26 10:04 | PDOC.PN ---
- Subjective Encounter Start Date: 04/26/18 (f/u htn) Encounter Start Time: 10:03 Subjective: Pt reports feeling well - denies any cp/sob/n/v/abd pain - Objective Resuscitation Status: Resuscitation Status FULL:Full Resuscitation Vital Signs & Weight: Vital Signs (12 hours) Temp Pulse Resp Pulse Ox 04/26/18 08:00 98.4 F 04/26/18 06:53 100 04/26/18 06:51 60 20 100 04/26/18 04:00 98.2 F 04/26/18 00:07 62 22 H 98 04/26/18 00:00 98.1 F Weight Admit Weight 244 lb 11.41 oz Weight 237 lb 1.6 oz Most Recent Monitor Data Heart Rate from ECG 72 NIBP 147/74 NIBP BP-Mean 95 Respiration from ECG 23 SpO2 100 I&O: 04/25/18 04/26/18 04/27/18 06:59 06:59 06:59 Intake Total 3524 2555.7 240 Output Total 920 2095 420 Balance 2604 460.7 -180 Result Diagrams: 04/26/18 04:00 04/26/18 04:00 EKG Reviewed by me: Yes (tele - sinus 60's, a fib yesterday) Phys Exam - Physical Examination Constitutional: NAD Respiratory: no wheezing, no rales, no rhonchi, clear to auscultation bilateral Cardiovascular: RRR, no significant murmur Gastrointestinal: soft, non-tender, no distention, positive bowel sounds Musculoskeletal: no edema Neurological: non-focal Psychiatric: normal affect, A&O x 3 Skin: no rash Dx/Plan (1) Atrial fibrillation with controlled ventricular response Code(s): I48.91 - UNSPECIFIED ATRIAL FIBRILLATION Status: Acute (2) CAD (coronary artery disease) Code(s): I25.10 - ATHSCL HEART DISEASE OF [place] CORONARY ARTERY W/O ANG PCTRS Status: Acute Qualifiers: Coronary Disease-Associated Artery/Lesion type: [place] artery [place] vs. transplanted heart: [place] heart Associated angina: without angina Qualified Code(s): I25.10 - Atherosclerotic heart disease of [place] coronary artery without angina pectoris (3) Cardiomyopathy Code(s): I42.9 - CARDIOMYOPATHY, UNSPECIFIED Status: Acute (4) Respiratory failure requiring intubation Code(s): J96.90 - RESPIRATORY FAILURE, UNSP, UNSP W HYPOXIA OR HYPERCAPNIA Status: Resolved (5) STEMI (ST elevation myocardial infarction) Status: Acute Qualifiers: Involved coronary artery: unspecified coronary artery Qualified Code(s): I21.3 - ST elevation (STEMI) myocardial infarction of unspecified site (6) HTN (hypertension) Code(s): I10 - ESSENTIAL (PRIMARY) HYPERTENSION Status: Chronic Qualifiers: Hypertension type: essential hypertension Qualified Code(s): I10 - Essential (primary) hypertension (7) Anemia Code(s): D64.9 - ANEMIA, UNSPECIFIED Status: Acute Qualifiers: Anemia type: unspecified type Qualified Code(s): D64.9 - Anemia, unspecified - Plan * Pt hemodynamically stable - transfer to tele * Appreciate cards directing tx of stemi/CM/a fib * appreciate Pulm directing tx of lungs - on abx, steroids, nebs * Anemia stable over past 2 days - continue following * * pt taking PO - d/c IVF * PT/OT - will also place consult for cardiac rehab * * dvt prophy - on lovenox and dual anti-platelet therapy * gi prophy - not indicated, d/c. * code status full * * reviewed plan of care with patient, no questions or further needs at end of eval.
--- NOTE | 2018-04-26 12:10 | PRG ---
DATE OF SERVICE: 04/26/2018 SUBJECTIVE: Mariza is awake, responsive. No pain, no shortness of breath. No further cardiac arrh ythmias. OBJECTIVE: VITAL SIGNS: Blood pressure 147/74, sats are 90% on room air, respiration rate 18. CHEST: Chest reveals decreased breath sounds without any wheezing. CARDIAC: Normal S1, S2, no gallops. ABDOMEN: Soft, no mass. LABORATORY DATA: White count 12,000, H and H 9 and 31, platelet count is normal. Cultures are negat kal. ASSESSMENT: Status post myocardial infarction, stent, chest tube. PLAN: Deescalate antibiotics in the next 24-48 hours. We will follow while in the ICU.
[2018-04-26] MEDS: hydrALAZINE 25 MG TAB PO SCH ×2 (14:32→21:01)
[2018-04-26] MEDS: Isosorbide Dinitrate 20 MG TAB PO SCH ×2 (14:32→21:01)
[2018-04-26] MEDS: Atorvastatin Calcium 40 MG TAB PO SCH (21:01)
[2018-04-27] MEDS: Piperacillin/Tazobactam 3.375 GM in Sodium Chloride 0.9% 100 ML IVPB SCH ×3 (02:57→15:47)
[2018-04-27 04:46] LABS: #Eosinphils 0.5 thou/uL (0.0-0.7); #Lymphocytes 2.6 thou/uL (1.20-3.40); #Monocytes 1.1 thou/uL (0.11-0.59); #Neutrophils 8.9 thou/uL (1.40-6.50); %Basophils 0.4 % (0.0-1.0); %Eosinophils 4.1 % (0.0-10.0); %Lymphocytes 19.7 % (21.0-51.0); %Monocytes 8.4 % (0.0-10.0); %Neutrophils 67.5 % (42.0-75.0); Mean Corpuscular HGB CONC 33.5 g/dL (32.0-36.0); Mean Corpuscular Hemoglobin 30.4 pg (27.0-31.0); Mean Corpuscular Volume 90.9 fl (80.0-94.0); Mean Platelet Volume 8.1 fL (7.4-10.4); Platelet Count 223 thou/uL (130-400); RBC Distribution Width 13.2 % (11.5-14.5); Red Blood Cell (RBC) Count 3.31 mill/uL (4.70-6.10); White Blood Cell (WBC) Count 13.2 thou/uL (4.8-10.8)
[2018-04-27 05:08] LABS: ALT (SGPT) 41 U/L (8-55); AST (SGOT) 24 U/L (5-34); Albumin 2.9 g/dL (3.4-4.8); Alkaline Phosphatase 114 U/L (40-150); Anion Gap 12 mmol/L (10-20); BUN (Urea Nitrogen) 23 mg/dL (8.4-25.7); Bilirubin, Total 0.7 mg/dL (0.2-1.2); Calc. Creatinine Clearance 76 mL/min (70-130); Calcium 8.2 mg/dL (7.8-10.44); Carbon Dioxide 21 mmol/L (23-31); Chloride 110 mmol/L (98-107); Estimated GFR-MDRD 52; Globulin 2.4 g/dL (2.4-3.5); Glucose 119 mg/dL (83-110); Potassium 3.6 mmol/L (3.5-5.1); Protein, Total 5.3 g/dL (5.8-8.1); Sodium 139 mmol/L (136-145)
[2018-04-27 08:21] LABS: Vancomycin, Trough 20.8 ug/mL
[2018-04-27] MEDS: hydrALAZINE 25 MG TAB PO SCH ×3 (08:24→21:29)
[2018-04-27] MEDS: Enoxaparin Sodium 40 MG/0.4 ML SYRINGE SC SCH (08:25)
[2018-04-27] MEDS: Clopidogrel Bisulfate 75 MG TAB PO SCH (08:26)
[2018-04-27] MEDS: Carvedilol 3.125 MG TAB PO SCH ×3 (08:26→21:28)
[2018-04-27] MEDS: Amiodarone 200 MG TAB PO SCH ×3 (08:26→21:28)
[2018-04-27] MEDS: Isosorbide Dinitrate 20 MG TAB PO SCH ×3 (08:26→21:30)
[2018-04-27] MEDS: Aspirin 325 mg Enteric Coated Tablet PO SCH (08:26)
[2018-04-27] MEDS: Vancomycin HCl 1 GM in Premix Bag 1 BAG IVPB SCH (08:30)
[2018-04-27] MEDS: Potassium Chloride 20 MEQ TAB PO SCH (08:36)
[2018-04-27] MEDS: OPTHALMIC L EYE SCH (09:00)
[2018-04-27] MEDS: LATANOPROST 0.005% L EYE SCH (09:00)
--- NOTE | 2018-04-27 13:27 | PDOC.PN ---
- Subjective Encounter Start Date: 04/27/18 Encounter Start Time: 13:33 Patient seen and examined after STEMI,, respiratory failure and ICU stay. Well oriented with episodes of confusion (likely ICU delirium). Has no complaints and has been participating in physical therapy. No acute events overnight. - Objective Resuscitation Status: Resuscitation Status FULL:Full Resuscitation Vital Signs & Weight: Vital Signs (12 hours) Temp Pulse Pulse Pulse Resp BP BP 04/27/18 08:39 82 83 118/56 L 04/27/18 08:24 72 113/63 04/27/18 08:00 98.2 F 72 20 04/27/18 07:19 72 12 04/27/18 04:00 98 F 71 20 BP BP BP Pulse Ox 04/27/18 08:39 109/58 L 04/27/18 08:24 04/27/18 08:00 113/63 93 L 04/27/18 07:19 04/27/18 04:00 114/56 L 94 L Weight Admit Weight 244 lb 11.41 oz Weight 242 lb 4.8 oz Most Recent Monitor Data Heart Rate from ECG 76 NIBP 148/73 NIBP BP-Mean 85 Respiration from ECG 24 SpO2 95 I&O: 04/26/18 04/27/18 04/28/18 06:59 06:59 06:59 Intake Total 2555.7 1240 Output Total 2095 1420 Balance 460.7 -180 Result Diagrams: 04/27/18 04:20 04/27/18 04:20 Phys Exam - Physical Examination Constitutional: NAD HEENT: moist MMs, sclera anicteric, oral pharynx no lesions Neck: supple, full ROM Respiratory: no wheezing, no rales, no rhonchi, clear to auscultation bilateral Cardiovascular: RRR, no significant murmur, no rub Gastrointestinal: soft, non-tender, no distention, positive bowel sounds Musculoskeletal: no edema, pulses present Neurological: non-focal, moves all 4 limbs Psychiatric: normal affect, A&O x 3 Skin: no rash, normal turgor Dx/Plan (1) CAD (coronary artery disease) Code(s): I25.10 - ATHSCL HEART DISEASE OF [place] CORONARY ARTERY W/O ANG PCTRS Status: Chronic Qualifiers: Coronary Disease-Associated Artery/Lesion type: [place] artery [place] vs. transplanted heart: [place] heart Associated angina: without angina Qualified Code(s): I25.10 - Atherosclerotic heart disease of [place] coronary artery without angina pectoris Comment: Stable, chest pain free. s/p stent placement. (2) Anemia Code(s): D64.9 - ANEMIA, UNSPECIFIED Status: Acute Qualifiers: Anemia type: unspecified type Qualified Code(s): D64.9 - Anemia, unspecified (3) Atrial fibrillation with controlled ventricular response Code(s): I48.91 - UNSPECIFIED ATRIAL FIBRILLATION Status: Resolved (4) Cardiomyopathy Code(s): I42.9 - CARDIOMYOPATHY, UNSPECIFIED Status: Chronic (5) STEMI (ST elevation myocardial infarction) Status: Resolved Qualifiers: Involved coronary artery: unspecified coronary artery Qualified Code(s): I21.3 - ST elevation (STEMI) myocardial infarction of unspecified site (6) HTN (hypertension) Code(s): I10 - ESSENTIAL (PRIMARY) HYPERTENSION Status: Chronic Qualifiers: Hypertension type: essential hypertension Qualified Code(s): I10 - Essential (primary) hypertension - Plan cont current plan of care, plan discussed w/ family, PT/OT, social services director, out of bed/ambulate, DVT proph w/lovenox CM working on [facility] placement. Review of Systems - Medications/Allergies Allergies/Adverse Reactions: Allergies Allergy/AdvReac Type Severity Reaction Status Date / Time LUDWIN Inhibitors Allergy Verified 04/24/18 09:14 Medications: Current Medications Acetaminophen (Tylenol Elixir) 325 mg PO Q6H PRN PRN Reason: Fever/Mild Pain Albuterol/Ipratropium (Duoneb) 3 ml NEB [id number] [facility] Last Admin: 04/27/18 07:19 Dose: 3 ml Amiodarone HCl (Cordarone) 400 mg PO BID [facility] Last Admin: 04/27/18 09:09 Dose: Not Given Aspirin (Ecotrin) 325 mg PO DAILY [facility] Last Admin: 04/27/18 08:26 Dose: 325 mg Atorvastatin Calcium (Lipitor) 40 mg PO HS [facility] Last Admin: 04/26/18 21:01 Dose: 40 mg Carvedilol (Coreg) 3.125 mg PO TID [facility] Clopidogrel Bisulfate (Plavix) 75 mg PO DAILY [facility] Last Admin: 04/27/18 08:26 Dose: 75 mg Enoxaparin Sodium (Lovenox) 40 mg SC 0900 [facility] Last Admin: 04/27/18 08:25 Dose: 40 mg Hydralazine HCl (Apresoline) 25 mg PO TID [facility] Last Admin: 04/27/18 08:24 Dose: 25 mg Piperacillin Sod/Tazobactam (Sod 3.375 gm/ Sodium Chloride) 100 mls @ 200 mls/ hr IVPB 0300,0900,1500,2100 [facility] Last Admin: 04/27/18 08:29 Dose: 100 mls Vancomycin HCl 1 gm/ Device 200 mls @ 200 mls/hr IVPB Q12HR [facility] Last Admin: 04/27/18 08:30 Dose: 200 mls Isosorbide Dinitrate (Isordil) 10 mg PO TID [facility] Last Admin: 04/27/18 08:26 Dose: 10 mg Latanoprost 0.005% (Opthalmic Solution) 0 each L EYE DAILY [facility] Last Admin: 04/26/18 08:34 Dose: 1 each Potassium Chloride (K-Dur) 20 meq PO QAM-WM [facility] Last Admin: 04/27/18 08:36 Dose: 20 meq Sodium Chloride (Flush - Normal Saline) 10 ml IVF Q12HR [facility] Last Admin: 04/27/18 08:30 Dose: 10 ml Sodium Chloride (Flush - Normal Saline) 10 ml IVF PRN PRN PRN Reason: Saline Flush
[2018-04-27] MEDS ORDERED: Melatonin 3 MG TAB PO PRN (13:30)
--- NOTE | 2018-04-27 16:57 | PRG ---
DATE OF SERVICE: 04/27/2018 SERVICE: Pulmonary Medicine. INTERVAL HISTORY: The patient is doing fine from a respiratory standpoint. He denies any current chest pain, nausea, vomiting, fevers or chills. He is breathing comfortably. He is on room air. Otherwise, there has been no interval change to his condition. PHYSICAL EXAMINATION: VITAL SIGNS: Afebrile, pulse 76, blood pressure 108/55, respirations 6-12, saturation 95% on room air. GENERAL: The patient is awake, alert, in no apparent distress. LUNGS: Decent air entry. There is no prolonged expiratory phase today. I do not appreciate wheezing, rhonchi or crackles. HEART: Normal rate, regular. ABDOMEN: Soft, nontender, nondistended. Bowel sounds are positive. MUSCULOSKELETAL: No cyanosis or clubbing. There is no pitting in the bilateral lower extremities. NEUROLOGICAL: Nonfocal. LABORATORY DATA: WBC 13.2, hemoglobin 10.0, platelets 223,000. Neutrophil count is within the normal limits at 67%. Creatinine is up trending to 1.34. Vancomycin trough is 21. Blood cultures x2 and urine culture are negative. IMAGING: Echocardiogram demonstrates 30%-35% ejection fraction with diastolic dysfunction. Moderate mitral regurgitation is present. ASSESSMENT: 1. Acute hypoxic respiratory failure, resolved. 2. ST elevation myocardial infarction, status post percutaneous coronary intervention. 3. Acute systolic heart failure, currently euvolemic. 4. Atrial fibrillation with rapid ventricular response, returned to normal sinus rhythm. 5. Chronic obstructive pulmonary disease, suspected, status post exacerbation. 6. Obstructive sleep apnea, possible. DISCUSSION AND PLAN: We can deescalate our antibiotics. He is currently euvolemic. We will work on mobilizing him. We will consider ordering a polysomnogram in the outpatient setting. At this point, there are no further inpatient requirements for Pulmonary or Critical Care opinion. As such, I will sign off. [facility]
[2018-04-27] MEDS: Amoxicillin/Potassium Clav 875 MG TAB PO SCH (21:28)
[2018-04-27] MEDS: Atorvastatin Calcium 40 MG TAB PO SCH (21:28)
[2018-04-28 06:00] LABS: Hemoglobin 10.3 g/dL (14.0-18.0); Mean Corpuscular HGB CONC 33.7 g/dL (32.0-36.0); Mean Corpuscular Hemoglobin 30.3 pg (27.0-31.0); Mean Platelet Volume 8.6 fL (7.4-10.4); Platelet Count 205 thou/uL (130-400); RBC Distribution Width 13.6 % (11.5-14.5)
[2018-04-28 06:16] LABS: Anion Gap 14 mmol/L (10-20); BUN (Urea Nitrogen) 20 mg/dL (8.4-25.7); Calc. Creatinine Clearance 86 mL/min (70-130); Calcium 8.4 mg/dL (7.8-10.44); Carbon Dioxide 20 mmol/L (23-31); Chloride 111 mmol/L (98-107); Estimated GFR-MDRD 61; Glucose 116 mg/dL (83-110); Potassium 3.6 mmol/L (3.5-5.1); Sodium 141 mmol/L (136-145)
[2018-04-28] MEDS: Carvedilol 3.125 MG TAB PO SCH ×2 (09:07→15:00)
[2018-04-28] MEDS: Isosorbide Dinitrate 20 MG TAB PO SCH ×2 (09:08→15:00)
[2018-04-28] MEDS: Amiodarone 200 MG TAB PO SCH (09:08)
[2018-04-28] MEDS: Amoxicillin/Potassium Clav 875 MG TAB PO SCH (09:08)
[2018-04-28] MEDS: hydrALAZINE 25 MG TAB PO SCH ×2 (09:09→16:35)
[2018-04-28] MEDS: Clopidogrel Bisulfate 75 MG TAB PO SCH (09:09)
[2018-04-28] MEDS: Aspirin 325 mg Enteric Coated Tablet PO SCH (09:09)
[2018-04-28] MEDS: Enoxaparin Sodium 40 MG/0.4 ML SYRINGE SC SCH (09:10)
[2018-04-28] MEDS: Potassium Chloride 20 MEQ TAB PO SCH (09:10)
[2018-04-28] MEDS: LATANOPROST 0.005% L EYE SCH (09:17)
[2018-04-28] MEDS: OPTHALMIC L EYE SCH (09:17)
--- NOTE | 2018-04-28 10:59 | PDOC.PN ---
- Subjective Encounter Start Date: 04/28/18 Encounter Start Time: 11:00 Patient seen and examined following STEMI s/p catheterization, Acute respirtory failure s/p intubation and extubation. Only complaint today is a non productive cough. no acute events overnight. - Objective Resuscitation Status: Resuscitation Status FULL:Full Resuscitation MAR Reviewed: Yes Vital Signs & Weight: Vital Signs (12 hours) Temp Pulse Resp BP BP BP Pulse Ox 04/28/18 09:09 96 133/61 04/28/18 08:00 98.9 F 82 18 131/66 97 04/28/18 07:33 96 04/28/18 07:31 80 16 96 04/28/18 03:15 98.9 F 81 16 105/59 L 92 L 04/28/18 00:34 12 04/27/18 23:14 78 115/57 L Weight Admit Weight 244 lb 11.41 oz Weight 240 lb 6.4 oz Most Recent Monitor Data Heart Rate from ECG 76 NIBP 148/73 NIBP BP-Mean 85 Respiration from ECG 24 SpO2 95 I&O: 04/27/18 04/28/18 04/29/18 06:59 06:59 06:59 Intake Total 1240 1330 Output Total 1420 700 Balance -180 630 Result Diagrams: 04/28/18 05:14 04/28/18 05:14 Phys Exam - Physical Examination Constitutional: NAD HEENT: moist MMs, sclera anicteric, oral pharynx no lesions Neck: supple, full ROM Respiratory: no wheezing, no rales, no rhonchi, clear to auscultation bilateral Cardiovascular: RRR, no significant murmur, no rub Gastrointestinal: soft, non-tender, no distention, positive bowel sounds Musculoskeletal: no edema, pulses present Neurological: non-focal, moves all 4 limbs Psychiatric: normal affect, A&O x 3 Dx/Plan (1) HTN (hypertension) Code(s): I10 - ESSENTIAL (PRIMARY) HYPERTENSION Status: Chronic Qualifiers: Hypertension type: essential hypertension Qualified Code(s): I10 - Essential (primary) hypertension Comment: Fairly well controlled. (2) CAD (coronary artery disease) Code(s): I25.10 - ATHSCL HEART DISEASE OF [place] CORONARY ARTERY W/O ANG PCTRS Status: Chronic Qualifiers: Coronary Disease-Associated Artery/Lesion type: [place] artery [place] vs. transplanted heart: [place] heart Associated angina: without angina Qualified Code(s): I25.10 - Atherosclerotic heart disease of [place] coronary artery without angina pectoris Comment: Stable, chest pain free. s/p stent placement. (3) Anemia Code(s): D64.9 - ANEMIA, UNSPECIFIED Status: Acute Qualifiers: Anemia type: unspecified type Qualified Code(s): D64.9 - Anemia, unspecified (4) Cardiomyopathy Code(s): I42.9 - CARDIOMYOPATHY, UNSPECIFIED Status: Chronic (5) Atrial fibrillation with controlled ventricular response Code(s): I48.91 - UNSPECIFIED ATRIAL FIBRILLATION Status: Resolved (6) STEMI (ST elevation myocardial infarction) Status: Resolved Qualifiers: Involved coronary artery: unspecified coronary artery Qualified Code(s): I21.3 - ST elevation (STEMI) myocardial infarction of unspecified site - Plan cont current plan of care, plan discussed w/ family, PT/OT, oncology social worker, incentive spirometry, out of bed/ambulate, DVT proph w/lovenox manager specialty working on rehabilitation placement Continue current medications Antibiotics discontinued. Review of Systems - Medications/Allergies Allergies/Adverse Reactions: Allergies Allergy/AdvReac Type Severity Reaction Status Date / Time LUDWIN Inhibitors Allergy Verified 04/24/18 09:14 Medications: Current Medications Acetaminophen (Tylenol Elixir) 325 mg PO Q6H PRN PRN Reason: Fever/Mild Pain Albuterol/Ipratropium (Duoneb) 3 ml NEB [id number] [facility] Last Admin: 04/28/18 07:31 Dose: 3 ml Amiodarone HCl (Cordarone) 400 mg PO BID [facility] Last Admin: 04/28/18 09:08 Dose: 400 mg Amoxicillin/Clavulanate Potassium (Augmentin) 875 mg PO Q12HR [facility] Stop: 04/29/18 21:01 Last Admin: 04/28/18 09:08 Dose: 875 mg Aspirin (Ecotrin) 325 mg PO DAILY [facility] Last Admin: 04/28/18 09:09 Dose: 325 mg Atorvastatin Calcium (Lipitor) 40 mg PO HS [facility] Last Admin: 04/27/18 21:28 Dose: 40 mg Carvedilol (Coreg) 3.125 mg PO TID [facility] Last Admin: 04/28/18 09:07 Dose: 3.125 mg Clopidogrel Bisulfate (Plavix) 75 mg PO DAILY [facility] Last Admin: 04/28/18 09:09 Dose: 75 mg Enoxaparin Sodium (Lovenox) 40 mg SC 0900 [facility] Last Admin: 04/28/18 09:10 Dose: 40 mg Guaifenesin (Mucinex) 600 mg PO Q12HR [facility] Hydralazine HCl (Apresoline) 25 mg PO TID [facility] Last Admin: 04/28/18 09:09 Dose: 25 mg Isosorbide Dinitrate (Isordil) 10 mg PO TID [facility] Last Admin: 04/28/18 09:08 Dose: 10 mg Melatonin (Melatonin) 3 mg PO HS PRN PRN Reason: Insomnia Latanoprost 0.005% (Opthalmic Solution) 0 each L EYE DAILY [facility] Last Admin: 04/28/18 09:17 Dose: 1 each Potassium Chloride (K-Dur) 20 meq PO QAM-WM [facility] Last Admin: 04/28/18 09:10 Dose: 20 meq Sodium Chloride (Flush - Normal Saline) 10 ml IVF Q12HR [facility] Last Admin: 04/27/18 21:30 Dose: 10 ml Sodium Chloride (Flush - Normal Saline) 10 ml IVF PRN PRN PRN Reason: Saline Flush
--- NOTE | 2018-04-28 16:16 | DIS ---
DATE OF ADMISSION: 04/22/2018 DATE OF DISCHARGE: 04/28/2018 DISCHARGE DIAGNOSES: ST-elevation myocardial infarction, hypertension, coronary artery disease, anem ia, cardiomyopathy, atrial fibrillation with rapid ventricular response, acute respiratory failure. HISTORY OF PRESENT ILLNESS/HOSPITAL COURSE: Mr. Zeke Dawkins is a 72-year-old male, who was on a cr uise in [place] and was found down. He was found to have a STEMI and had a cardiac catheterization to his right coronary artery. He also suffered a pneumothorax and was on a chest tube, which was subse quently discontinued, as well as acute respiratory failure, requiring intubation. He was transferred from [place] to [facility], intubated and sedated, so he was admitted for further care at [facility]. While he was in the hospital, he went into cardiac arrest and required resuscitat ion with full ROSC. Eventually, he was transitioned from the ICU to [facility] after he had been treated f or hypotension with Levophed. The patient continued to improve with therapy. He had aspirin, Plavix , and amiodarone restarted. He was rate controlled and deemed stable for discharge to a rehab facili . DISCHARGE MEDICATIONS: Amiodarone 400 mg b.i.d., Augmentin 875 mg q.12 hours, aspirin 325 mg daily, atorvastatin 40 mg at bedtime, carvedilol 3.125 mg t.i.d., clopidogrel 75 mg daily, Mucinex 600 mg q. 12 hours, hydralazine 25 mg t.i.d., isosorbide dinitrate 10 mg t.i.d., lisinopril 40 mg a day (medica tion this was held until MIRIAN resolved), metformin 500 mg b.i.d., potassium chloride 20 mEq q.a.m., vi tamin K/C/E/zinc/copper 2 tablets b.i.d. PHYSICAL EXAMINATION: GENERAL: The patient was seen and examined on day of discharge. VITAL SIGNS: Blood pressure 114/56, oxygen saturation 96% on room air, respiratory rate 20, his puls e rate 75, temperature 98.4 degrees Fahrenheit. For further details, see today's progress notes. LABORATORY DATA: Sodium 141, potassium 3.6, chloride 111, carbon dioxide 20, anion gap 14, BUN 20, c reatinine 1.18, glucose 116, calcium 8.4. WBC 12, hemoglobin 10.3, platelet count 205. IMAGING: Chest x-ray, echocardiogram done on 04/27/2018 showed EF of 30%-35% with depressed left shirley tricular function and diastolic dysfunction. Echocardiogram on 04/24/2018 shows the same ejection fr action of 30%-35%. CONSULTATIONS: Cardiology and Pulmonology. CONDITION ON DISCHARGE: Stable and improved. PROCEDURES: None. DIET: Heart healthy, diabetic. CARE GOALS: To follow up with primary care physician within 1 week of discharge for repeat labs. ACTIVITY: Also, to follow activities as directed by PT/OT and activity as Cardiology recommends. Discharge time 65 minutes including chart review and documentation.
[2018-04-28 16:42] VITALS: TEMP 98.1
[2018-04-28] MEDS ORDERED: guaiFENesin ER 600 MG TAB PO SCH (21:00)
[2018-04-29 07:04] VITALS: BP 124/57
== END 2018-04-28 18:27 | disposition home or self-care (01) | DRG 280 ==
LOC: CCU 22:10 → 2NO 04-26 11:37
PROVIDERS: ADMIT Internal Medicine; ATTEND Internal Medicine
PROC: 5A1945Z Respiratory Ventilation, 24-96 Consecutive Hours (ICD-10-PCS; principal; 2018-04-22)
DX: I21.3 ST elevation (STEMI) myocardial infarction of unspecified site (principal); J96.01 Acute respiratory failure with hypoxia; A41.9 Sepsis, unspecified organism; I46.9 Cardiac arrest, cause unspecified; J44.1 Chronic obstructive pulmonary disease with (acute) exacerbation; N17.9 Acute kidney failure, unspecified; I42.9 Cardiomyopathy, unspecified; I95.9 Hypotension, unspecified; H40.9 Unspecified glaucoma; I48.91 Unspecified atrial fibrillation; G47.33 Obstructive sleep apnea (adult) (pediatric); Z95.5 Presence of coronary angioplasty implant and graft; F17.210 Nicotine dependence, cigarettes, uncomplicated; E78.5 Hyperlipidemia, unspecified; E11.9 Type 2 diabetes mellitus without complications; I25.10 Atherosclerotic heart disease of native coronary artery without angina pectoris
CPT/HCPCS: 36415; 36416; 71045; 80048; 80053; 80061; 80162; 80202; 81003; 81015; 82805; 83605; 84443; 85025; 85027; 87040; 87086; 92950; 93005; 93010; 93306; 93798; 94002; 94003; 94640; A4216; C9113; G8978-GP-CM; G8979-GP-CK; G8987-GO-CK; G8988-GO-CI; J0282; J1160; J1650; J2310; J2543; J2920; J3010; J3370; J3475; J7050; J7070; J7620

== ENCOUNTER 2018-05-28 08:40 | Outpatient (CLI) | payer MEDICARE | END 2018-05-28 08:41 | disposition home or self-care (01) | LOC: CP 08:40 | PROVIDERS: ATTEND Internal Medicine | DX: J44.9 Chronic obstructive pulmonary disease, unspecified (principal); G47.33 Obstructive sleep apnea (adult) (pediatric) | CPT/HCPCS: 94060; 94727; 94729 ==

== ENCOUNTER 2019-08-20 23:35 | Inpatient (IN) | payer MEDICARE ==
[2019-08-21 03:24] VITALS: BMI 79.3
[2019-08-21] MEDS: Sodium Chloride 0.9% 1,000 ML IV SCH ×2 (04:17→08:55)
[2019-08-21 06:33] LABS: #Eosinphils 0.2 thou/uL (0.0-0.7); #Lymphocytes 3.3 thou/uL (1.20-3.40); #Monocytes 0.9 thou/uL (0.11-0.59); #Neutrophils 5.9 thou/uL (1.40-6.50); %Basophils 0.4 % (0.0-1.0); %Eosinophils 1.5 % (0.0-10.0); %Lymphocytes 31.9 % (21.0-51.0); %Monocytes 8.5 % (0.0-10.0); %Neutrophils 57.8 % (42.0-75.0); Hemoglobin 8.7 g/dL (14.0-18.0); Mean Corpuscular HGB CONC 33.1 g/dL (32.0-36.0); Mean Corpuscular Hemoglobin 30.3 pg (27.0-31.0); Mean Corpuscular Volume 91.6 fL (78.0-98.0); Mean Platelet Volume 8.8 fL (7.4-10.4); Platelet Count 145 thou/uL (130-400); RBC Distribution Width 13.5 % (11.5-14.5); Red Blood Cell (RBC) Count 2.88 mill/uL (4.70-6.10); White Blood Cell (WBC) Count 10.3 thou/uL (4.8-10.8)
[2019-08-21 06:49] LABS: Lactic Acid 2.4 mmol/L (0.5-2.2)
[2019-08-21 06:53] LABS: ALT (SGPT) 14 U/L (8-55); AST (SGOT) 12 U/L (5-34); Albumin 3.2 g/dL (3.4-4.8); Alkaline Phosphatase 56 U/L (40-110); Anion Gap 14 mmol/L (10-20); BUN (Urea Nitrogen) 78 mg/dL (8.4-25.7); Bilirubin, Total 0.2 mg/dL (0.2-1.2); Calc. Creatinine Clearance 189 mL/min (70-130); Calcium 8.1 mg/dL (7.8-10.44); Carbon Dioxide 18 mmol/L (23-31); Chloride 112 mmol/L (98-107); Estimated GFR-MDRD 53; Globulin 2.1 g/dL (2.4-3.5); Glucose 198 mg/dL (83-110); Potassium 4.2 mmol/L (3.5-5.1); Protein, Total 5.3 g/dL (5.8-8.1); Sodium 140 mmol/L (136-145)
[2019-08-21 09:35] LABS: Troponin I Less than 0.010 ng/mL (< 0.028)
[2019-08-21] MEDS ORDERED: Ondansetron PF 4 MG/2 ML Vial IVP PRN (13:12)
[2019-08-21] MEDS ORDERED: Ondansetron ODT 4 MG TAB PO PRN (13:12)
[2019-08-21] MEDS ORDERED: Acetaminophen 325 MG TAB PO PRN (13:12)
[2019-08-21] MEDS ORDERED: Dextrose 50% Abboject 50 ML SYRINGE SLOW IVP PRN (13:12)
[2019-08-21] MEDS ORDERED: Dextrose 5% in Water 1,000 ML IV PRN (13:12)
[2019-08-21] MEDS ORDERED: Sodium Chloride 0.9% (PF) 10 ML VIAL FS PRN (13:27)
[2019-08-21] MEDS ORDERED: Pantoprazole 40 MG VIAL IVP SCH (13:30)
[2019-08-21] MEDS ORDERED: Sodium Bicarbonate 75 MEQ in Sodium Chloride 0.45% 1,000 ML IV SCH (13:45)
[2019-08-21 14:38] LABS: Hemoglobin 8.8 g/dL (14.0-18.0)
--- NOTE | 2019-08-21 14:46 | HP ---
PRIMARY CARE PHYSICIAN: Dr. Vicky Hamm. CHIEF COMPLAINT: Generalized weakness and near syncope. HISTORY OF PRESENT ILLNESS: A 73-year-old male patient with known history of coronary artery disease, status post stent placement; ischemic cardiomyopathy, status post AICD placement; hypertension; diabetes; chronic heart failure; who was admitted on transfer from [facility] for further evaluation and treatment of near syncope and generalized weakness. The patient reportedly woke up yesterday, August 20, 2019 with generalized weakness and malaise associated with orthostatic dizziness and diaphoresis. He denied nausea, vomiting, or change in bowel habits. reportedly checked his blood pressure noticed that it was unusually lower than baseline with elevated heart rate. The patient was subsequently taken to [facility], where he was found to have soft blood pressure with systolic in 90s and 100. The patient also was noticed to be tachycardic and diaphoretic. He was treated with IV fluid therapy 1500 mL and was subsequently transferred over here. The patient also received Rocephin [address] [facility]. There was no history of syncope, fall, nausea, vomiting, or diarrhea. The patient also denied chest pain, palpitations, shortness of breath, worsening leg swelling, abdominal pain, focal weakness, headache, or change in mental status. IV fluid therapy was continued and the patient was admitted for further evaluation and treatment. The patient reportedly had a stool that was said to be dark, but he denied melena, hematochezia, hematuria, or hematemesis. Of note, the patient was in usual state of health the day prior to onset of symptoms and he actually mowed his lawn. There was no change in medication and there is no chance of him doubling up on his medication accidentally as his takes care of his medications. PAST MEDICAL HISTORY: 1. Diabetes mellitus. 2. Hypertension. 3. Paroxysmal atrial fibrillation. 4. Coronary artery disease, status post angioplasty. 5. Hyperlipidemia. 6. Ischemic cardiomyopathy. 7. Chronic CHF. PAST SURGICAL HISTORY: 1. Angioplasty. 2. Pacemaker placement. 3. History of chest tube placement. FAMILY HISTORY: Reviewed, but noncontributory. SOCIAL HISTORY: The patient lives with spouse. He is a former smoker with about 30 pack years, but quit several years ago. Denied alcohol or recreational drug use. The patient wants to be full code. Spouse is the surrogate decision maker. ALLERGIES: NO KNOWN DRUG ALLERGIES REPORTED. HOME MEDICATIONS: 1. Aspirin 325 mg p.o. daily. 2. Carvedilol 12.5 mg p.o. b.i.d. 3. Furosemide 20 mg p.o. daily. 4. Vitamin A with C and E, zinc and copper two tablets p.o. b.i.d. 5. Lipitor 40 mg p.o. daily at bedtime. 6. Plavix 75 mg p.o. daily. 7. Hydralazine 25 mg p.o. t.i.d. 8. Isosorbide dinitrate 10 mg t.i.d. 9. Xalatan eye drop one drop to left eye at bedtime. 10. Metformin 500 mg p.o. b.i.d. 11. Potassium chloride 20 mEq p.o. daily. REVIEW OF SYSTEMS: 12-point review of systems performed was negative, other than pertinent positives and negatives included in the history of present illness. PHYSICAL EXAMINATION: VITAL SIGNS: Most recent vitals showed blood pressure of 123/73 on lying, 110/69 sitting, and 98/61 standing; temperature 98.0; pulse 86; respiratory rate 16; SpO2 of 97% on room air. GENERAL: Obese male, in no obvious distress. Afebrile. Anicteric. Acyanotic. HEENT: Normocephalic and atraumatic. Oral mucosa is moist. NECK: Supple. Nontender with good range of motion. No JVD or lymphadenopathy or masses appreciated. CARDIOVASCULAR: Regular with frequent ectopics. Normal heart sounds one and two. RESPIRATORY: Fair air entry bilaterally with few transmitted breath sounds as well as scattered rhonchi. Work of breathing is not increased. GI: Abdomen is obese, soft, nontender, nondistended with normal bowel sounds. EXTREMITIES: Grossly normal looking with no obvious edema, erythema, or cyanosis. Distal pulses are palpable. 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 Cranial nerves 2 through 12 are grossly intact. The patient is hard of hearing. Moves all extremities. DIAGNOSTIC DATA: CBC on presentation at [facility] showed WBC count of 12.7, hemoglobin of 10.9, MCV of 89.5, and platelet of 196. Repeat CBC today shows WBC of 10.3, hemoglobin of 8.7 down two counts and platelet of 145. Review of medical record showed that the patient had hemoglobin of 12.3 on May 13, 2018. However, prior to that he has anemia with hemoglobin ranging from 9.4 to 11.2. D-dimer performed on presentation on August 20 showed 0.41. CMP on August 20 showed sodium 142, potassium 5.1, chloride 108, CO2 of 19, BUN 69, creatinine 1.52, glucose 260, calcium 8.7, total bilirubin 0.4, AST 13, ALT 19, alkaline phosphatase 68, total protein 6.1, albumin 3.6, globulin 2.5. Repeat CMP earlier today showed sodium 140, potassium 4.2, chloride 112, CO2 of 18, anion gap 14, BUN 78, creatinine 1.32, glucose 198, calcium 8.1, total bilirubin 0.2, AST 12, ALT 14, alkaline phosphatase 56, total protein 5.3, albumin 3.2, globulin 2.1. Review of medical records showed that BUN was 26 on May 26, 2019 while creatinine was 1.25 on May 26, 2019. Lactic acid: Initially 3.8 on presentation on August 20, down to 2.4 earlier today. Lipase on presentation was 36. Urinalysis on presentation August 20 showed yellow clear urine with pH of 5.0, specific gravity of 1.015, trace ketones, trace leukocyte esterase, negative blood, nitrite, bilirubin, glucose, and protein. Microscopy, however, showed 0 to 3 rbc and 4 to 6 wbc with rare few bacteria. Troponin: Initial troponin performed on presentation was 0.011 and repeat earlier today was less than 0.010. BNP on presentation was 32.7. IMAGING STUDIES: EKG performed at [facility] showed atrial sensed ventricular paced reading with rate of 110. Chest x-ray performed at [facility] showed mild cardiomegaly, which is stable with no vascular congestion, edema, or pleural effusion. Cardiac pacer wires were noted. ASSESSMENT: 1. Circulatory shock with lactic acidosis and orthostatic hypotension: Etiology is unclear, but differentials include occult infection, GI bleeding leading to hypovolemia as well as iatrogenic shock from antihypertensives. Cardiogenic shock is a concern, given the patient has history of ischemic cardiomyopathy. 2. Systemic inflammatory response syndrome, given tachycardia and leukocytosis with lactic acid. This is concerning for sepsis. However, there is no overt or obvious source of infection. The patient denied fever, nausea, vomiting, or diarrhea. 3. Suspected GI bleeding: Given hypovolemia, circulatory shock, and acute elevation in BUN relative to creatinine as well as acute drop in hemoglobin. 4. Acute on chronic anemia: Acute drop in hemoglobin from above 10 to 8 is either due to GI bleeding with acute blood loss anemia or correction of hemoconcentration. 5. Orthostatic hypotension with blood pressure dropping from systolic of above 120 to 90s on standing. 6. Orthostatic dizziness. 7. Ischemic cardiomyopathy with ejection fraction in 30s, status post AICD placement. 8. Chronic systolic and diastolic heart failure with no overt evidence of acute decompensation. 9. Type 2 diabetes mellitus. 10. Coronary artery disease, status post stent placements on antiplatelets. 11. Paroxysmal atrial fibrillation. 12. Acute kidney injury: This is felt to be related to circulatory shock. PLAN: 1. IV fluid therapy to continue. We will however substitute normal saline with sodium bicarb in half-normal saline given worsening metabolic acidosis. 2. We will also start the patient on Protonix 40 mg IV b.i.d. 3. We will get stool occult blood. 4. We will start sliding scale insulin while holding oral hypoglycemic agent. 5. We will get serial troponin and we will transfuse packed red blood cells if hemoglobin gets below 8. 6. We will also interrogate the AICD to see if there is any arrhythmia. 7. We will hold antihypertensives and antiplatelet in view of hypotension and possible GI bleeding. 8. Cardiology and GI consults are contemplated. 9. We will also get echocardiogram. 10. Code status, full code. The patient's spouse is the surrogate decision maker. It is anticipated that the patient will be hospitalized for more than 2 midnights. Further treatment and recommendation to follow depending on hospital course and review of other diagnostic tests. Job ID: [id number]
[2019-08-21 19:57] LABS: Hemoglobin 8.1 g/dL (14.0-18.0)
[2019-08-21] MEDS: Atorvastatin Calcium 40 MG TAB PO SCH (20:03)
[2019-08-21] MEDS: Latanoprost 0.005% Ophth Soln 2.5 ml Bottle L EYE SCH (20:04)
[2019-08-21] MEDS: Pantoprazole 40 MG VIAL IVP SCH (20:04)
[2019-08-21] MEDS ORDERED: FLU VACC TS2019-20(65YR UP)/PF 180 MCG/0.5 ML SYRINGE IM ONE (21:00)
[2019-08-22] MEDS: Sodium Bicarbonate 75 MEQ in Sodium Chloride 0.45% 1,000 ML IV SCH (04:23)
[2019-08-22 06:13] LABS: Band 5 % (5-11); Eosinophils 3 % (0-10); Hemoglobin 8.4 g/dL (14.0-18.0); Hypochromia SLIGHT = 6-15 cells (100X) (0-5/hpf); Lymphocytes 27 % (21-51); MDiff Complete? YES; Mean Corpuscular HGB CONC 34.2 g/dL (32.0-36.0); Mean Corpuscular Hemoglobin 30.8 pg (27.0-31.0); Mean Corpuscular Volume 90.1 fL (78.0-98.0); Mean Platelet Volume 8.4 fL (7.4-10.4); Monocytes 7 % (0-10); Neutrophil 58 % (42-75); Platelet Count 153 thou/uL (130-400); Platelet Morphology Comment Appears Adequate; Polychromasia SLIGHT = 2-3 cells (100X) (0-2/hpf); RBC Distribution Width 13.8 % (11.5-14.5); Red Blood Cell (RBC) Count 2.71 mill/uL (4.70-6.10); White Blood Cell (WBC) Count 8.3 thou/uL (4.8-10.8)
[2019-08-22 06:31] LABS: ALT (SGPT) 16 U/L (8-55); AST (SGOT) 13 U/L (5-34); Albumin 3.3 g/dL (3.4-4.8); Alkaline Phosphatase 55 U/L (40-110); Anion Gap 12 mmol/L (10-20); BUN (Urea Nitrogen) 43 mg/dL (8.4-25.7); Bilirubin, Total 0.3 mg/dL (0.2-1.2); Calc. Creatinine Clearance 96 mL/min (70-130); Calcium 8.1 mg/dL (7.8-10.44); Carbon Dioxide 22 mmol/L (23-31); Chloride 113 mmol/L (98-107); Estimated GFR-MDRD 59; Globulin 2.3 g/dL (2.4-3.5); Glucose 151 mg/dL (83-110); Potassium 3.8 mmol/L (3.5-5.1); Protein, Total 5.6 g/dL (5.8-8.1); Sodium 143 mmol/L (136-145)
[2019-08-22] MEDS: Carvedilol 3.125 MG TAB PO SCH ×2 (09:24→17:35)
[2019-08-22] MEDS: Pantoprazole 40 MG VIAL IVP SCH ×2 (09:26→20:15)
[2019-08-22] MEDS: HumaLOG 300 UNITS/3 ML VIAL SC PRN ×2 (12:15→17:35)
--- NOTE | 2019-08-22 12:15 | PDOC.HOSPP ---
- Subjective Encounter Date: 08/22/19 Encounter Time: 09:38 Subjective: 73 y/o male admitted due to worsening weakness and malaise associated with orthostatic dizziness and diaphoresis. Found to be hypotensive and treated with Fluid resuscitation with improvement. Feeling better. Having black stools. - Objective Vital Signs & Weight: Vital Signs (12 hours) Temp Pulse Pulse Pulse Resp BP BP 08/22/19 11:29 87 99 117/58 L 129/60 08/22/19 07:47 97.3 F L 101 H 22 H 08/22/19 04:27 98.7 F 89 17 BP BP Pulse Ox 08/22/19 11:29 08/22/19 07:47 124/58 L 100 08/22/19 04:27 132/71 98 Weight Weight 280 lb 1.6 oz I&O: 08/21/19 08/22/19 08/23/19 06:59 06:59 06:59 Intake Total 3394 Output Total 4221 Balance -827 Result Diagrams: 08/22/19 05:36 08/22/19 05:36 Additional Labs: Accuchecks 08/22/19 08/22/19 08/21/19 11:04 05:27 20:50 POC Glucose 204 H 161 H 199 H 08/21/19 17:40 POC Glucose 218 H Hospitalist ROS - Medication Medications: Active Medications Generic Name Dose Route Start Last Admin Trade Name Freq PRN Reason Stop Dose Admin Atorvastatin Calcium 40 mg 08/21/19 21:00 08/21/19 20:03 Lipitor PO 40 mg HS CHEY Administration Carvedilol 3.125 mg 08/22/19 08:00 08/22/19 09:24 Coreg PO 3.125 mg BID-WM CHEY Administration Sodium Bicarbonate 75 meq/ 1,075 mls @ 50 mls/hr 08/21/19 19:30 08/22/19 04: 23 Sodium Chloride IV 1,075 mls INF CHEY Administration Latanoprost 1 drop 08/21/19 21:00 08/21/19 20:04 Xalatan 0.005% Ophth Soln L EYE 1 drp HS CHEY Administration Pantoprazole Sodium 40 mg 08/21/19 21:00 08/22/19 09:26 Protonix IVP 40 mg Q12HR CHEY Administration - Exam General Appearance: awake alert Eye: anicteric sclera ENT: normocephalic atraumatic Neck: symmetric, no JVD Heart: RRR, murmur present Respiratory: CTAB, no wheezes, no rales, no ronchi, normal chest expansion Gastrointestinal: soft, non-tender, non-distended, normal bowel sounds Extremities: no cyanosis, no edema Neurological: cranial nerve grossly intact, no focal deficits Psychiatric: normal affect, A&O x 3 Hosp A/P (1) Shock Code(s): R57.9 - SHOCK, UNSPECIFIED Status: Acute (2) GI bleeding Code(s): K92.2 - GASTROINTESTINAL HEMORRHAGE, UNSPECIFIED Status: Acute (3) Acute on chronic anemia Code(s): D64.9 - ANEMIA, UNSPECIFIED Status: Acute (4) Paroxysmal atrial fibrillation Code(s): I48.0 - PAROXYSMAL ATRIAL FIBRILLATION Status: Acute (5) Ischemic cardiomyopathy Code(s): I25.5 - ISCHEMIC CARDIOMYOPATHY Status: Acute (6) Lactic acidosis Code(s): E87.2 - ACIDOSIS Status: Acute (7) CAD (coronary artery disease) Code(s): I25.10 - ATHSCL HEART DISEASE OF [place] CORONARY ARTERY W/O ANG PCTRS Status: Chronic Qualifiers: Coronary Disease-Associated Artery/Lesion type: [place] artery [place] vs. transplanted heart: [place] heart Associated angina: without angina Qualified Code(s): I25.10 - Atherosclerotic heart disease of [place] coronary artery without angina pectoris (8) COPD (chronic obstructive pulmonary disease) Status: Chronic (9) Cardiomyopathy Code(s): I42.9 - CARDIOMYOPATHY, UNSPECIFIED Status: Chronic (10) MIRIAN (acute kidney injury) Code(s): N17.9 - ACUTE KIDNEY FAILURE, UNSPECIFIED Status: Acute - Plan Continue gentle IV hydration and IV PPI Get GI consult. Continue to hold antiplatelets. Monitor H/H and transfuse if Hb gets below 8 Monitor electrolytes and replete as needed
--- NOTE | 2019-08-22 13:42 | CON ---
DATE OF CONSULTATION: 08/22/2019 REQUESTING PHYSICIAN: Dr. Almanza. REASON FOR CONSULTATION: GI bleeding. HISTORY OF PRESENT ILLNESS: Zeke Dawkins is a 73-year-old man with a history of coronary artery disease with stent placement as well as ischemic cardiomyopathy. He has an AICD in place. He is on full-dose aspirin as well as Plavix. He has no significant past gastrointestinal history. He says he gets yearly FOBTs which have always been negative, with regard to colon screening. He was admitted to the hospital yesterday. A couple of days ago, he woke up feeling dizzy, diaphoretic, and lightheaded and overall weak. He was found to have some orthostatic hypotension. He presented to an outside ER where systolic pressures were in the 90s. Initial hemoglobin was 10.9, BUN 69, creatinine 1.52. He responded well to the IV fluids and was transferred here. Throughout all this time, he says he has had some very dark stools. He had two dark stools a couple of days ago and then one even darker stool yesterday. He has not had any bowel movements today. He denies any bright red blood per rectum or any other overt bleeding from anywhere. His hemoglobin trended down to 8.7 yesterday and then 8.4 this morning. His BUN remains elevated out of proportion to the creatinine with BUN 43 and creatinine 1.21. Echocardiogram demonstrated his ejection fraction is actually 55% to 60%. He has never undergone any upper endoscopy or colonoscopy. FOBT was performed and was positive. REVIEW OF SYSTEMS: Full review of systems including constitutional, head, eyes, ears, nose, throat, GI, , cardiovascular, respiratory, musculoskeletal, neurologic systems is negative except as noted in the HPI. PAST MEDICAL HISTORY: Coronary artery disease with stent placement, ischemic cardiomyopathy with AICD placement, hypertension, diabetes, hyperlipidemia, atrial fibrillation. ALLERGIES: NO KNOWN DRUG ALLERGIES. OUTPATIENT MEDICATIONS: 1. Aspirin 325 mg daily. 2. Plavix 75 mg daily. 3. Carvedilol. 4. Furosemide. 5. Multivitamin. 6. Lipitor. 7. Hydralazine. 8. Isosorbide dinitrate. 9. Metformin. 10. Potassium chloride. 11. Xalatan eye drops. SOCIAL HISTORY: He is a former smoker. No drug or alcohol use. FAMILY HISTORY: Negative for gastrointestinal malignancy. PHYSICAL EXAMINATION: VITAL SIGNS: Temperature 97.3, pulse 87, blood pressure 117/58, 100% oxygen saturation on room air. GENERAL: Obese 73-year-old man lying in bed comfortably, in no distress. MENTAL: Alert and fully oriented. Pleasant, conversational. SKIN: No jaundice, no rashes were palpable. HEENT: Eyes no scleral icterus. Extraocular movements intact. ENT, mucous membranes moist. No oral lesions. LYMPH: No submandibular or supraclavicular lymphadenopathy. THYROID: Nontender to palpation. HEART: Regular rate and rhythm. LUNGS: Clear to auscultation bilaterally. ABDOMEN: Bowel sounds present. Soft and nontender to palpation throughout. EXTREMITIES: No peripheral edema. VESSELS: Radial pulses 2+ bilaterally. NEUROLOGIC: Cranial nerves 2 through 12 intact bilaterally. No focal deficits. LABORATORY STUDIES: Evidently hemoglobin on presentation at the outside facility yesterday was 10.9, trended down to 8.7 with IV fluid administration, today it is 8.4. MCV is normal at 90.1, WBC 8.3, platelets 153, BUN 43, creatinine 1.21, sodium 143, potassium 3.8. ESR only 2. FOBT is positive. LFTs all normal. Lipase normal at 36. BNP only 32.7. IMAGING STUDIES: Echocardiogram demonstrated ejection fraction 55% to 60%. ASSESSMENT AND PLAN: 1. Anemia, possibly secondary to gastrointestinal blood loss versus hemodilution since admission with IV fluid administration. 2. Melena, reported just over the past few days. 3. Positive fecal occult blood test. 4. Elevated BUN. Put altogether, the patient's presentation is suggestive of possible upper gastrointestinal bleeding, subacute, over the past few days. Hemoglobin is relatively stable today and he has had no melenic stools today. Further investigation is certainly warranted. Agree with the Protonix 40 mg IV q.12 hours for now. We will plan for diagnostic EGD tomorrow. If this demonstrates a potential bleeding source, we will treat accordingly. If the EGD is completely negative, then I would recommend bowel preparation tomorrow night and colonoscopy the following day. Continue to trend H and H and monitor clinically. Thank you for the consultation. Please call anytime with questions or concerns. Job ID: [id number]
[2019-08-22 18:26] LABS: Hemoglobin 8.8 g/dL (14.0-18.0)
[2019-08-22] MEDS: Latanoprost 0.005% Ophth Soln 2.5 ml Bottle L EYE SCH (20:15)
[2019-08-22] MEDS: Atorvastatin Calcium 40 MG TAB PO SCH (20:15)
[2019-08-23] MEDS: Sodium Bicarbonate 75 MEQ in Sodium Chloride 0.45% 1,000 ML IV SCH (04:48)
[2019-08-23 05:29] LABS: Anion Gap 14 mmol/L (10-20); BUN (Urea Nitrogen) 25 mg/dL (8.4-25.7); Calc. Creatinine Clearance 101 mL/min (70-130); Calcium 7.9 mg/dL (7.8-10.44); Carbon Dioxide 21 mmol/L (23-31); Chloride 110 mmol/L (98-107); Estimated GFR-MDRD 61; Glucose 149 mg/dL (83-110); Potassium 3.8 mmol/L (3.5-5.1); Sodium 141 mmol/L (136-145)
[2019-08-23 08:04] LABS: #Eosinphils 0.4 thou/uL (0.0-0.7); #Lymphocytes 2.1 thou/uL (1.20-3.40); #Monocytes 0.6 thou/uL (0.11-0.59); #Neutrophils 3.6 thou/uL (1.40-6.50); %Basophils 0.5 % (0.0-1.0); %Eosinophils 5.5 % (0.0-10.0); %Lymphocytes 31.5 % (21.0-51.0); %Monocytes 8.8 % (0.0-10.0); %Neutrophils 53.7 % (42.0-75.0); Hemoglobin 7.9 g/dL (14.0-18.0); Mean Corpuscular HGB CONC 33.2 g/dL (32.0-36.0); Mean Corpuscular Volume 90.3 fL (78.0-98.0); Mean Platelet Volume 8.8 fL (7.4-10.4); Platelet Count 138 thou/uL (130-400); Red Blood Cell (RBC) Count 2.63 mill/uL (4.70-6.10); White Blood Cell (WBC) Count 6.6 thou/uL (4.8-10.8)
[2019-08-23] MEDS: Pantoprazole 40 MG VIAL IVP SCH (09:04)
[2019-08-23] MEDS: Carvedilol 3.125 MG TAB PO SCH ×2 (09:04→16:57)
[2019-08-23] MEDS ORDERED: GoLYTELY 4,000 ml Bottle PO SCH ×2 (10:45→17:00)
--- NOTE | 2019-08-23 11:05 | OP ---
DATE OF PROCEDURE: 08/23/2019 PROCEDURE PERFORMED: Esophagogastroduodenoscopy. PREPROCEDURE DIAGNOSES: History of melena and drop in hemoglobin with elevated BUN suggestive of upper gastrointestinal bleeding. POSTPROCEDURE DIAGNOSIS: Esophagogastroduodenoscopy with no stigmata of bleeding. There was a duodenal diverticula with no stigmata of bleeding. No bleeding sites identified. RECOMMENDATIONS: Colonoscopy tomorrow. ANESTHESIA: TIVA. DESCRIPTION OF PROCEDURE: The patient was informed of the risks, benefits, and possible complications of endoscopy including perforation, reaction to medication, aspiration. Informed consent was obtained. The patient was brought to endoscopy suite, where he was sedated in gradual fashion. Once he was comfortable, bite block was placed inside the orifice. The endoscope was advanced through the esophagus, stomach, and second and third portions of the duodenum and slowly removed. The stomach, esophagus, and duodenum and the third portion were all within normal limits. There was a periampullary diverticula within the duodenum without stigmata of bleeding. There was some mild erythema in the antrum, which was nonspecific without erosions or ulcers or bleeding. Retroflexed views in the stomach were normal. The stomach had normal sensibility. The scope was then returned to forward position. The scope was removed. The patient tolerated procedure well. There were no complications. Job ID: [id number]
[2019-08-23] MEDS ORDERED: PROPOFOL 200 MG/20 ML VIAL ONE (13:27)
[2019-08-23] MEDS: HumaLOG 300 UNITS/3 ML VIAL SC PRN (16:57)
[2019-08-23] MEDS: Atorvastatin Calcium 40 MG TAB PO SCH (20:08)
[2019-08-23] MEDS: Latanoprost 0.005% Ophth Soln 2.5 ml Bottle L EYE SCH (20:09)
[2019-08-23] MEDS ORDERED: Sodium Bicarbonate 75 MEQ in Sodium Chloride 0.45% 1,000 ML IV SCH (22:09)
--- NOTE | 2019-08-24 00:04 | PRG ---
DATE OF SERVICE: 08/23/2019 SUBJECTIVE: A 73-year-old male with coronary artery disease, status post stent , on aspirin and Plavix, presented to the emergency room with melena. His hemoglobin on admission was 8.7. His hemoglobin 3 days ago was 10.9. He underwent EGD earlier today that was negative for active bleeding. He is scheduled for colonoscopy tomorrow. He denies any chest pain, shortness of breath, hematemesis, or melena. OBJECTIVE: VITAL SIGNS: Temperature 98.2, pulse of 81, respirations 16, blood pressure 107/64, O2 saturation 95% on room air. GENERAL: A 73-year-old male, in no apparent distress. LUNGS: Clear to auscultation bilaterally. No wheezing, rales, or rhonchi. HEART: S1 and S2 present. Regular rate and rhythm. No rubs or gallops. ABDOMEN: Soft, nontender. Bowel sounds present. EXTREMITIES: No edema or calf tenderness. NEUROLOGIC: Grossly nonfocal. Moves all 4 extremities. PSYCHIATRIC: Alert, awake, oriented x3. LABORATORY FINDINGS: Sodium 141, potassium 3.8, chloride 110, bicarb 21, platelet count 138 with hemoglobin 7.9. Echocardiogram showed left ventricular ejection fraction of 55% to 60% with mild mitral regurgitation, mild tricuspid regurgitation. Blood cultures and urine cultures have been negative. IMPRESSION: 1. Near syncope. 2. Acute blood loss anemia. 3. Orthostatic hypotension secondary to gastrointestinal bleeding/Anemia/MIRIAN on CKD2 4. Coronary artery disease. Aspirin and Plavix are on hold. 5. Hypertension. 6. Diabetes mellitus, type 2. 7. Hyperlipidemia. 8. Paroxysmal atrial fibrillation. 9. Cardiomyopathy, status post AICD. 10. Ischemic cardiomyopathy. PLAN: The patient is scheduled for colonoscopy in a.m. We will recheck hemoglobin in a.m. Continue gentle IV hydration. Continue PPIs. Aspirin and Plavix currently on hold. Recheck electrolytes in a.m. Job ID: [id number] [facility]
[2019-08-24 05:23] LABS: Hemoglobin 7.3 g/dL (14.0-18.0); Platelet Count 139 thou/uL (130-400)
[2019-08-24] MEDS: Carvedilol 3.125 MG TAB PO SCH ×2 (05:28→16:28)
[2019-08-24 05:39] LABS: Calcium 8.3 mg/dL (7.8-10.44); Chloride 109 mmol/L (98-107); Potassium 3.6 mmol/L (3.5-5.1); Sodium 142 mmol/L (136-145)
[2019-08-24 05:48] LABS: Anion Gap 12 mmol/L (10-20); BUN (Urea Nitrogen) 16 mg/dL (8.4-25.7); Calc. Creatinine Clearance 105 mL/min (70-130); Carbon Dioxide 24 mmol/L (23-31); Estimated GFR-MDRD 64; Glucose 135 mg/dL (83-110)
[2019-08-24] MEDS: Pantoprazole 40 MG VIAL IVP SCH (09:06)
[2019-08-24] MEDS ORDERED: PROPOFOL 200 MG/20 ML VIAL ONE (12:18)
[2019-08-24] MEDS ORDERED: ePHEDrine 50 MG/ML VIAL ONE (12:18)
[2019-08-24 12:32] LABS: Hemoglobin 7.6 g/dL (14.0-18.0)
--- NOTE | 2019-08-24 14:22 | OP ---
DATE OF PROCEDURE: 08/24/2019 PROCEDURE PERFORMED: Colonoscopy with snare polypectomy. PREOPERATIVE DIAGNOSIS: Gastrointestinal bleed presenting with melena. Upper endoscopy was negative for a bleeding source. DESCRIPTION OF PROCEDURE: Informed consent was obtained from the patient. The patient was sedated with total intravenous anesthesia. The rectal exam was performed and was normal. The colonoscope was advanced to the terminal ileum. There was some difficulty getting through the transverse colon due to looping in that area. The mucosa of the terminal ileum was normal. The ileocecal valve and appendiceal orifice were clearly identified. The preparation quality was good. I removed 5 small pale hyperplastic appearing polyps from the transverse colon. These measured 3 to 5 mm. I removed one 5 mm similar polyp from the descending colon. There was diverticulosis throughout the colon including the cecum. Retroflex views in the rectum were normal. The colonoscopy was otherwise normal. IMPRESSION: 1. Diverticulosis throughout the colon. 2. Pale 3 to 5 mm polyps x5 in the transverse and x1 in the descending colon. These are most likely hyperplastic polyps. They were sent for histopathology. 3. Otherwise normal colonoscopy to the terminal ileum. 4. No bleeding source or stigmata of recent bleeding was identified by this exam. There was clear yellow effluent throughout the colon without any blood. When he took a bowel prep, he said the did pass a lot of black stools initially, but never any red stools. RECOMMENDATIONS: 1. Await histopathology. 2. Future colon surveillance depending on pathology results. 3. Follow up in the office to consider capsule endoscopy. 4. If he overtly bleeds again, then nuclear medicine scan would be the next step. 5. Dr. Villareal should be back tomorrow. Job ID: [id number] [facility]
[2019-08-24] MEDS ORDERED: Iron Sucrose Complex 200 MG in Sodium Chloride 0.9% 250 ML 250 ML IVPB SCH (15:45)
[2019-08-24] MEDS: HumaLOG 300 UNITS/3 ML VIAL SC PRN (16:40)
[2019-08-24] MEDS ORDERED: Iron, Sodium Ferric Gluconate 250 MG in Sodium Chloride 0.9% 100 ML IVPB SCH (17:00)
[2019-08-24] MEDS: Atorvastatin Calcium 40 MG TAB PO SCH (20:18)
[2019-08-24] MEDS: Sodium Chloride 0.45% 500 ML IV SCH (20:18)
[2019-08-24] MEDS: Latanoprost 0.005% Ophth Soln 2.5 ml Bottle L EYE SCH (20:18)
--- NOTE | 2019-08-24 23:00 | PDOC.HOSPP ---
- Subjective Encounter Date: 08/24/19 Encounter Time: 15:00 Subjective: Patient seen and examined for GI bleeding. s/p colonoscopy. No CP or SOB. No new GI bleeding. No overnight events - Objective Vital Signs & Weight: Vital Signs (12 hours) Temp Pulse Resp BP BP Pulse Ox 08/24/19 20:00 97.8 F 79 18 115/67 94 L 08/24/19 17:22 97.7 F 88 18 112/69 96 08/24/19 16:37 87 110/63 08/24/19 14:15 97.7 F 86 18 128/80 100 08/24/19 11:00 98.2 F 82 18 103/64 96 Weight Weight 284 lb 1.6 oz I&O: 08/23/19 08/24/19 08/25/19 06:59 06:59 06:59 Intake Total 2555 3850 1040 Output Total 2275 Balance 280 3850 1040 Result Diagrams: 08/25/19 05:58 08/24/19 04:36 Additional Labs: Accuchecks 08/24/19 08/24/19 08/24/19 19:35 16:21 11:21 POC Glucose 202 H 214 H 163 H 08/24/19 05:32 POC Glucose 154 H Hospitalist ROS - Review of Systems Respiratory: denies: cough, dry, shortness of breath, hemoptysis, SOB with excertion, pleuritic pain, sputum, wheezing, other Cardiovascular: denies: chest pain, palpitations, orthopnea, paroxysmal noc. dyspnea, edema, light headedness, other - Medication Medications: Active Medications Generic Name Dose Route Start Last Admin Trade Name Freq PRN Reason Stop Dose Admin Atorvastatin Calcium 40 mg 08/21/19 21:00 08/24/19 20:18 Lipitor PO 40 mg HS CHEY Administration Carvedilol 3.125 mg 08/22/19 08:00 08/24/19 16:28 Coreg PO 3.125 mg BID-WM CHEY Administration Sodium Chloride 500 mls @ 50 mls/hr 08/25/19 05:00 08/24/19 20:18 1/2 Normal Saline IV 500 mls .Q10H CHEY Administration Insulin Human Lispro 0 units 08/21/19 13:12 08/24/19 16:40 Humalog SC 4 unit .MODERATE SLIDING SC PRN Administration Moderate Correctional Scale Latanoprost 1 drop 08/21/19 21:00 08/24/19 20:18 Xalatan 0.005% Ophth Soln L EYE 1 drp HS CHEY Administration Pantoprazole Sodium 40 mg 08/24/19 09:00 08/24/19 09:06 Protonix IVP 40 mg DAILY CHEY Administration - Exam General Appearance: NAD Neck: supple, no JVD Heart: RRR, no gallops Respiratory: CTAB, no rales Gastrointestinal: soft, non-tender, normal bowel sounds Extremities: no edema Hosp A/P - Plan IMPRESSION: 1. Near syncope/GI bleeding with acute blood loss anemia. 2. Lactic acidosis due to Hypotension. 3. Orthostatic hypotension secondary to gastrointestinal bleeding/Anemia/MIRIAN on CKD2 4. Coronary artery disease. Aspirin and Plavix are on hold. 5. Hypertension. 6. Diabetes mellitus, type 2. 7. Hyperlipidemia. 8. Paroxysmal atrial fibrillation. 9. Cardiomyopathy, status post AICD. 10. Ischemic cardiomyopathy. 11. Diverticulosis/Colon polyps PLAN: Repeat HH in AM. Also check Reticulocyte ct Antiplatelets on hold Cont PPIs Cont IVF at K[facility] Ambulate Iron infusion Recheck Orthostatic vitals in AM Capsule study as outpt
[2019-08-25] MEDS: HumaLOG 300 UNITS/3 ML VIAL SC PRN ×2 (06:03→12:45)
[2019-08-25 06:14] LABS: Hemoglobin 7.5 g/dL (14.0-18.0)
[2019-08-25 06:15] LABS: Reticulocyte Count 6.1 % (0.5-1.5)
[2019-08-25] MEDS: Carvedilol 3.125 MG TAB PO SCH ×2 (08:46→16:44)
[2019-08-25] MEDS: Pantoprazole 40 MG VIAL IVP SCH (08:47)
[2019-08-25] MEDS ORDERED: Iron, Sodium Ferric Gluconate 250 MG in Sodium Chloride 0.9% 100 ML IVPB SCH (09:00)
[2019-08-25] MEDS ORDERED: Cyanocobalamin (Vitamin B-12) 1,000 MCG TAB PO SCH (09:00)
[2019-08-25] MEDS ORDERED: Iron Sucrose Complex 200 MG in Sodium Chloride 0.9% 250 ML 250 ML IVPB SCH (09:00)
[2019-08-25] MEDS ORDERED: Folic Acid 1 MG TAB PO SCH (09:00)
[2019-08-25 15:04] VITALS: BP 109/69; TEMP 97.7
[2019-08-25] MEDS: Sodium Chloride 0.45% 500 ML IV SCH (15:46)
--- NOTE | 2019-08-25 15:48 | PQF ---
CLINICAL DOCUMENTATION IMPROVEMENT CLARIFICATION FORM: ICD-10 Updated PLEASE DO AN ADDENDUM TO THE PROGRESS NOTE WITH ANY DOCUMENTATION UPDATES OR ADDITIONS AND CARRY THROUGH TO DC SUMMARY. THANK YOU. DATE: 08/25/2019 ATTN: Dr. Krishnan Please exercise your independent, professional judgment in responding to the clarification form. Clinical indicators are provided on the bottom of this form for your review Please check appropriate box(s): [ ] SIRS due to non-infectious process with organ dysfunction. [ ] SIRS due to non-infectious process without organ dysfunction. [ x ] Other diagnosis _Lactic acidosis due to GI bleeding/Anemia/Hypotension [ ] Unable to determine In addition, please specify: Present on Admission (POA): [ x ] Yes [ ] No [ ] Unable to determine For continuity of documentation, please document condition throughout progress notes and discharge summary. Thank You. CLINICAL INDICATORS - SIGNS / SYMPTOMS / LABS ER Record 08/21: pulse 104, 106 H&P 08/21: presentation at [facility] showed WBC ct of 12.7 Lactic acid: Initially 3.8 on presentation 08/20, down to 2.4 earlier today. Systemic inflammatory response syndrome, given tachycardia and leukocytosis with lactic acid. Suspected GI bleeding: Given hypovolemia, circulatory shock, and acute elevation in BUN relative to creatinine as well as acute drop in hemoglobin. PN 08/24: Orthostatic hypotension secondary to GI bleeding/Anemia, MIRIAN on CKD2 RISKS: H&P 08/21: Circulatory shock with lactic acidosis and orthostatic hypotension. Suspected GI bleeding. MIRIAN TREATMENT: H&P 08/21: admitted on transfer from [facility] He was treated with IV fluid therapy 1500ml and was subsequently transferred over here. Order 08/21: NS 1,000ml IV 125 mls/hr stopped 08/21 Thank you, Marlee (This form is maintained as a part of the permanent medical record) 2014 [employer] All Rights Reserved Marlee York RN, BSN [email or web address] Office: [phone] [facility]
--- NOTE | 2019-08-25 17:12 | PRG ---
DATE OF SERVICE: 08/25/2019 SUBJECTIVE: Mr. Dawkins has done well today. He has passed no further bowel movement since his essentially negative colonoscopy yesterday. Certainly, no melena. Hemoglobin has been stable today. He received iron infusion. He is eager to go home if possible. OBJECTIVE: VITAL SIGNS: Temperature 97.9, pulse 76, blood pressure 109/69, and 95% oxygen saturation on room air. GENERAL: In no acute distress. HEART: Regular rate and rhythm. LUNGS: Clear to auscultation bilaterally. ABDOMEN: Soft, nontender to palpation. EXTREMITIES: No peripheral edema. LABORATORY STUDIES: Hemoglobin 7.5, hematocrit 22.1, platelets 139, and reticulocyte count 6.1. BUN declined, down to 16; creatinine 1.12. ASSESSMENT AND PLAN: 1. Melena, unclear source, with essentially negative EGD and colonoscopy over the past couple of days. This has now resolved. Note, the BUN was significantly elevated on presentation and is now declined to normal levels, seems most consistent with upper gastrointestinal bleeding, which is now resolved, though again, no bleeding lesion was seen on endoscopy. 2. Acute blood loss anemia, this is stabilized. I discussed with the patient there is no further evidence of bleeding over the past couple of days, though it remains unclear where the bleeding source was. Possibilities would include small-bowel source which could not be reached endoscopically versus Dieulafoy lesion in the stomach. Regardless, I think the patient is stable for discharge today. His Plavix should probably be continued, but I would recommend decreasing his aspirin down to 81 mg per day. 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 For our part, we will plan to see him back in the GI Clinic in 3 to 4 weeks with preclinic CBC. If the patient is not having significant improvement in his counts or especially if he has any concern for recurrent overt bleeding in the meantime, we would plan for outpatient small-bowel capsule endoscopy evaluation. Please call back anytime with questions or concerns. Job ID: [id number]
--- NOTE | 2019-08-25 19:54 | DIS ---
DATE OF ADMISSION: 08/23/2019 DATE OF DISCHARGE: 08/25/2019 DISCHARGE DISPOSITION: Home. FOLLOWUP: Follow up with primary care physician, Dr. Hamm in 1 week. The patient was seen on the day of discharge. Denies any new complaints. No chest pain, shortness of breath, palpitations, hematemesis, or melena reported. DISCHARGE MEDICATIONS: 1. Protonix 40 mg daily. 2. Ferrous sulfate 325 mg b.i.d. 3. All other home medications were left unchanged. 4. Aspirin dose was reduced to 81 mg. 5. The patient was advised to monitor his blood pressure on a daily basis. 6. He was also advised to hold hydralazine and Imdur if his blood pressure is below 110. INPATIENT ABSORPTION AND ADSORPTION ENGINEER: Gastroenterology, Dr. Villareal. INPATIENT PROCEDURES: On 24 August 2019, the patient underwent colonoscopy that showed diverticulosis with colonic polyp. On 23 August 2019, the patient underwent EGD without any active bleeding. There were duodenal diverticula without any stigmata of bleeding. BRIEF HOSPITAL COURSE: The patient is a 73-year-old male with coronary artery disease on aspirin and Plavix, presented to the hospital with generalized weakness, near syncope, and melena. His initial vital signs in the emergency room showed temperature 98.3, respiration of 23, pulse rate of 108 with blood pressure of 124/49. His hemoglobin on admission was 8.7 with lactic acid of 2.4, creatinine of 1.32 with BUN of 78. Please refer to the history and physical dated [address] Almanza for further details. The patient was admitted to the hospital with a diagnosis of GI bleeding. He was monitored closely on the medical floor. He had frequent hemoglobin and hematocrit. His blood counts dropped to 7.3. He received iron infusion. He underwent EGD and colonoscopy as discussed above. He had acute kidney injury along with lactic acidosis secondary to hypovolemia. He did not have any recurrence of bleeding over the last 48 hours. He has been cleared by Gastroenterology for discharge. FINAL DIAGNOSES: 1. Near syncope with gastrointestinal bleeding as well as acute blood loss anemia. 2. Lactic acidosis due to hypovolemia. 3. Orthostatic hypotension on admission secondary to #1. 4. Acute kidney injury on chronic kidney disease, stage 2. 5. Coronary artery disease. The patient will resume aspirin and Plavix. 6. Hypertension. 7. Diabetes mellitus, type 2. 8. Hyperlipidemia. 9. Paroxysmal atrial fibrillation. 10. Cardiomyopathy, status post AICD. 11. Diverticulosis. 12. Colonic polyp. 13. Obesity with a BMI of 37.5. PLAN: Plan was discussed with the patient and the family at the bedside. They stated understanding. Job ID: [id number]
--- NOTE | 2019-08-26 09:51 | PQF ---
[employer] Crystal Reports Winform ViewerZSCHPETER HENAO DEVASHLEY Megan [id number] [id number] CLINICAL DOCUMENTATION CLARIFICATION FORM: POST DISCHARGE Addendum to original discharge summary date: ____ Late entry note date: __ DATE: 08/26/2019 ATTN: ASHLEY MÉNDEZ Please exercise your independent, professional judgment in responding to the clarification form. Clinical indicators are provided on the bottom of this form for your review Please check appropriate box(s) to clarify if the following diagnosis has been ruled in or ruled out: Cardiogenic shock [ ] Ruled in diagnosis [ ] Continue to treat [ ] Resolved [ ] Ruled out diagnosis [ ] Cannot rule out diagnosis [ ] Other diagnosis [x ] Unable to determine For continuity of documentation, please document condition throughout progress notes and discharge summary. Thank You. CLINICAL INDICATORS - SIGNS / SYMPTOMS / LABS -Circulatory shock with lactic acidosis-H&P, 08/21, ASHLEY MÉNDEZ -GI bleeding leading to hypovolemia as well as iatrogenic shock from antihypertensives-H&P, 08/21, ASHLEY MÉNDEZ - Cardiogenic shock is a concern-H&P, 08/21, ASHLEY MÉNDEZ -Blood pressure dropping from systolic of above 120 to 90s on standing- H&P, , ASHLEY MÉNDEZ -Lactic acidosis due to hypovolemia-DS, 08/25, Ariella vasques MD RISK FACTORS -Orthostatic hypotension- H&P, 08/21, ASHLEY MNÉDEZ -GI bleed presenting with melena- OP report, 08/24, Lawrence Stevens MD -Acute blood loss anemia-DS, 08/25, Ariella vasques MD TREATMENTS -Aspirin.PO-JAN, 08/23 -Sodium chloride.IV- JAN, 08/23 -will hold antihypertensives and antiplatelet-H&P, 08/21, ASHLEY MÉNDEZ [employer] Win[employer] Viewer(This form is maintained as a part of the permanent medical record) 2014 [employer]. All Rights Reserved Danny Jacques [not provided] [not provided] MTDD
== END 2019-08-25 18:00 | disposition home or self-care (01) | DRG 378 ==
LOC: ERS 23:35 → T4-B 08-21 02:22 → 2NO 08-21 16:26 → T4-A 08-23 13:07 → OBSVTOIN 08-23 13:12
PROVIDERS: ADMIT Hospitalist; ATTEND Hospitalist
PROC: 0DJ08ZZ Inspection of Upper Intestinal Tract, Via Natural or Artificial Opening Endoscopic (ICD-10-PCS; principal; 2019-08-23)
PROC: 0DBM8ZX Excision of Descending Colon, Via Natural or Artificial Opening Endoscopic, Diagnostic (ICD-10-PCS; 2019-08-24)
PROC: 0DBL8ZZ Excision of Transverse Colon, Via Natural or Artificial Opening Endoscopic (ICD-10-PCS; 2019-08-24)
DX: K92.2 Gastrointestinal hemorrhage, unspecified (principal); E87.2 Acidosis; N17.9 Acute kidney failure, unspecified; D62 Acute posthemorrhagic anemia; I13.0 Hypertensive heart and chronic kidney disease with heart failure and stage 1 through stage 4 chronic kidney disease, or unspecified chronic kidney disease; I50.42 Chronic combined systolic (congestive) and diastolic (congestive) heart failure; I25.10 Atherosclerotic heart disease of native coronary artery without angina pectoris; E86.1 Hypovolemia; I95.1 Orthostatic hypotension; N18.2 Chronic kidney disease, stage 2 (mild); I25.5 Ischemic cardiomyopathy; E11.22 Type 2 diabetes mellitus with diabetic chronic kidney disease; E86.0 Dehydration; E78.5 Hyperlipidemia, unspecified; K63.5 Polyp of colon; K57.30 Diverticulosis of large intestine without perforation or abscess without bleeding; I48.0 Paroxysmal atrial fibrillation; E66.9 Obesity, unspecified; Z95.5 Presence of coronary angioplasty implant and graft; Z95.810 Presence of automatic (implantable) cardiac defibrillator; Z79.01 Long term (current) use of anticoagulants; Z68.37 Body mass index [BMI] 37.0-37.9, adult
CPT/HCPCS: 36415; 36416; 80048; 80053; 82274; 83605; 83880; 84145; 84484; 85007; 85014; 85018; 85025; 85027; 85046; 85049; 85652; 86140; 86850; 86900; 86901; 88305; 90471; 90662; 93306; 99284; C9113; G0008; J2704; J2916; J3490

== ENCOUNTER 2022-05-07 11:18 | Outpatient (CLI) | payer MEDICARE | END 2022-05-07 11:19 | disposition home or self-care (01) | LOC: CT 11:18 | PROVIDERS: ATTEND Otolaryngology Otology & Neurotology | DX: H92.11 Otorrhea, right ear (principal); H90.3 Sensorineural hearing loss, bilateral | CPT/HCPCS: 70480 ==

== ENCOUNTER 2022-07-15 09:07 | Outpatient (CLI) | payer MEDICARE ==
[2022-07-15 12:17] LABS: #Basophils 0.1 10x3/uL (0.0-0.2); #Eosinphils 0.4 10x3/uL (0.0-0.5); #Monocytes 0.6 10x3/uL (0.0-1.1); #Neutrophils 3.6 10x3/uL (1.5-8.4); %Basophils 0.8 % (0.0-2.0); %Eosinophils 6.2 % (0.0-6.0); %Lymphocytes 27.1 % (18.0-47.0); %Monocytes 9.4 % (0.0-10.0); %Neutrophils 56.2 % (40.0-75.0); Hemoglobin 14.1 g/dL (13.5-17.5); Mean Corpuscular HGB CONC 31.6 g/dL (32.0-36.0); Mean Corpuscular Volume 91.6 fl (81.2-95.1); Mean Platelet Volume 11.6 fl (7.4-10.4); Platelet Count 159 10x3/uL (150-450); RBC Distribution Width 14.9 % (11.5-14.5); Red Blood Cell (RBC) Count 4.87 10x6/uL (4.32-5.72); White Blood Cell (WBC) Count 6.5 10x3/uL (3.5-10.5)
[2022-07-15 13:15] LABS: ALT (SGPT) 20 U/L (8-55); AST (SGOT) 19 U/L (5-34); Albumin 4.1 g/dL (3.4-4.8); Alkaline Phosphatase 94 U/L (40-110); Anion Gap 18 mmol/L (10-20); BUN (Urea Nitrogen) 28 mg/dL (8.4-25.7); Bilirubin, Total 0.7 mg/dL (0.2-1.2); Calc. Creatinine Clearance 0 mL/min (70-130); Calcium 8.8 mg/dL (7.8-10.44); Carbon Dioxide 20 mmol/L (23-31); Chloride 110 mmol/L (98-107); Estimated GFR 53; Globulin 2.6 g/dL (2.4-3.5); Glucose 163 mg/dL (83-110); Potassium 4.6 mmol/L (3.5-5.1); Protein, Total 6.7 g/dL (5.8-8.1); Sodium 143 mmol/L (136-145)
== END 2022-07-15 09:08 | disposition home or self-care (01) ==
LOC: LABBT 09:07
PROVIDERS: ATTEND Internal Medicine Cardiovascular Disease
DX: I25.10 Atherosclerotic heart disease of native coronary artery without angina pectoris (principal); Z20.822 Contact with and (suspected) exposure to COVID-19
CPT/HCPCS: 80053; 85025; 87811

== ENCOUNTER 2022-07-17 05:51 | Observation (INO) | payer MEDICARE ==
[2022-07-17] MEDS ORDERED: Lidocaine 1% PF 5 ML VIAL ONE (06:29)
[2022-07-17] MEDS ORDERED: Heparin 10,000 UNITS/ 10 ML VIAL ONE (06:29)
[2022-07-17] MEDS ORDERED: Fentanyl 100 MCG/2 ML VIAL ONE (06:29)
[2022-07-17] MEDS ORDERED: Midazolam HCl 2 mg/2 ml Vial ONE (06:29)
[2022-07-17] MEDS ORDERED: Nitroglycerin 100MG/250ML BOT 0 ML ONE (06:30)
[2022-07-17] MEDS ORDERED: Lidocaine 1% 50ML VIAL ONE (07:39)
[2022-07-17] MEDS ORDERED: Bivalirudin 250 MG VIAL ONE (08:03)
[2022-07-17] MEDS ORDERED: Clopidogrel Bisulfate 300 MG TAB ONE (08:04)
[2022-07-17] MEDS ORDERED: Atorvastatin Calcium 40 MG TAB ONE (11:21)
[2022-07-17] MEDS ORDERED: Iopamidol 370 76% 50 ML VIAL FS ONE (14:25)
[2022-07-17] MEDS ORDERED: Iopamidol 370 76% 100 ML VIAL ONE (14:25)
[2022-07-17] MEDS ORDERED: Latanoprost 0.005% Ophth Soln 2.5 ml Bottle L EYE SCH (21:00)
[2022-07-17] MEDS ORDERED: Atorvastatin Calcium 40 MG TAB PO SCH (21:00)
[2022-07-18 00:21] VITALS: BMI 36.8
[2022-07-18 04:51] LABS: #Eosinphils 0.1 thou/uL (0.0-0.7); #Lymphocytes 1.6 thou/uL (1.20-3.40); #Monocytes 0.8 thou/uL (0.11-0.59); #Neutrophils 5.9 thou/uL (1.40-6.50); %Basophils 0.2 % (0.0-1.0); %Lymphocytes 18.5 % (21.0-51.0); %Monocytes 9.5 % (0.0-10.0); %Neutrophils 70.8 % (42.0-75.0); Hemoglobin 13.7 g/dL (14.0-18.0); Mean Corpuscular HGB CONC 31.4 g/dL (32.0-36.0); Mean Corpuscular Hemoglobin 29.1 pg (27.0-31.0); Mean Corpuscular Volume 92.6 fL (78.0-98.0); Mean Platelet Volume 9.2 fL (7.4-10.4); Platelet Count 143 thou/uL (130-400); RBC Distribution Width 13.7 % (11.5-14.5); White Blood Cell (WBC) Count 8.3 thou/uL (4.8-10.8)
[2022-07-18 05:01] LABS: ALT (SGPT) 17 U/L (8-55); AST (SGOT) 14 U/L (5-34); Albumin 3.8 g/dL (3.4-4.8); Alkaline Phosphatase 89 U/L (40-110); Anion Gap 18 mmol/L (10-20); BUN (Urea Nitrogen) 21 mg/dL (8.4-25.7); Bilirubin, Total 0.8 mg/dL (0.2-1.2); Calc. Creatinine Clearance 99 mL/min (70-130); Calcium 8.7 mg/dL (7.8-10.44); Carbon Dioxide 19 mmol/L (23-31); Chloride 107 mmol/L (98-107); Estimated GFR 68; Globulin 2.7 g/dL (2.4-3.5); Glucose 144 mg/dL (83-110); Protein, Total 6.5 g/dL (5.8-8.1); Sodium 140 mmol/L (136-145)
[2022-07-18] MEDS: Ciprofloxacin 500 MG TAB PO SCH ×2 (07:00)
[2022-07-18] MEDS: Vit A,C & E/Lutein/Minerals Tablet PO SCH ×2 (09:00)
[2022-07-18] MEDS ORDERED: Aspirin 81 mg Enteric Coated Tablet PO SCH (09:00)
[2022-07-18] MEDS: Carvedilol 25 MG TAB PO SCH ×2 (09:00)
[2022-07-18] MEDS: NEOMYCIN-POLYMYXIN-HC EAR SUSP 200 DROP/10 ML BOT R EAR SCH ×2 (09:47)
[2022-07-18] MEDS: glipiZIDE 5 MG TAB PO SCH ×2 (09:47)
[2022-07-18 12:41] VITALS: BP 123/70; TEMP 97.7
[2022-07-19] MEDS ORDERED: metFORMIN 500 MG TAB PO SCH (08:00)
[2022-07-19] MEDS ORDERED: Furosemide 20 MG TAB PO SCH (08:00)
[2022-07-19] MEDS ORDERED: Potassium Chloride 20 MEQ TAB PO SCH (08:00)
== END 2022-07-18 15:15 | disposition home or self-care (01) ==
LOC: SDC 05:51 → 2NO 22:55
PROVIDERS: ADMIT Internal Medicine Cardiovascular Disease; ATTEND Internal Medicine Cardiovascular Disease
PROC: 02713EZ Dilation of Coronary Artery, Two Arteries with Two Intraluminal Devices, Percutaneous Approach (ICD-10-PCS; principal; 2022-07-17)
PROC: 4A023N7 Measurement of Cardiac Sampling and Pressure, Left Heart, Percutaneous Approach (ICD-10-PCS; 2022-07-17)
PROC: B2111ZZ Fluoroscopy of Multiple Coronary Arteries using Low Osmolar Contrast (ICD-10-PCS; 2022-07-17)
DX: I25.10 Atherosclerotic heart disease of native coronary artery without angina pectoris (principal); I25.2 Old myocardial infarction; E11.9 Type 2 diabetes mellitus without complications; E78.5 Hyperlipidemia, unspecified; I10 Essential (primary) hypertension; I25.5 Ischemic cardiomyopathy; I44.7 Left bundle-branch block, unspecified; I48.0 Paroxysmal atrial fibrillation; E78.00 Pure hypercholesterolemia, unspecified; Z87.891 Personal history of nicotine dependence; Z79.02 Long term (current) use of antithrombotics/antiplatelets; Z79.2 Long term (current) use of antibiotics; Z79.82 Long term (current) use of aspirin; Z79.84 Long term (current) use of oral hypoglycemic drugs; Z79.899 Other long term (current) drug therapy; Z95.5 Presence of coronary angioplasty implant and graft; Z95.810 Presence of automatic (implantable) cardiac defibrillator
CPT/HCPCS: 80053; 80061; 82962 ×2; 85025; 85347 ×2; 92928; 93005; 93458; C1769 ×2; C1876; 36415; 36416; 99152; 99153; J0583; J1644; J2250; J3010; J3490; Q9967

== ENCOUNTER 2023-10-28 07:39 | Outpatient (CLI) | payer MEDICARE | END 2023-10-28 07:40 | disposition home or self-care (01) | LOC: BICULT 07:39 | PROVIDERS: ATTEND Family Medicine | DX: Z00.00 Encounter for general adult medical examination without abnormal findings (principal) | CPT/HCPCS: 76775 ==